=== PATIENT | male | born 1935 | race Caucasian/White ===

== ENCOUNTER 2017-11-25 12:05 | Emergency (ER) | payer MEDICARE ==
[2017-11-25 12:21] VITALS: TEMP 98
[2017-11-25] MEDS ORDERED: SODIUM CHLORIDE 0.9% 500 ML IV STA (12:33)
[2017-11-25] MEDS ORDERED: MECLIZINE 12.5 MG TAB PO STA (12:34)
[2017-11-25] MEDS ORDERED: METOCLOPRAMIDE 5 MG/ML 2 ML VIAL IVP STA (12:34)
--- NOTE | 2017-11-25 12:37 | ED ---
General Adult HPI - General Chief complaint: Dizziness Stated complaint: Dizzy Time Seen by Provider: 11/25/17 12:26 Source: patient, family, RN notes reviewed Mode of arrival: wheelchair Limitations: no limitations - History of Present Illness Initial comments: Patient is a pleasant 82-year-old male presenting to the emergency Department with complaints of dizziness. Onset was when he awoke at 8 AM. Patient feels lightheaded. Patient denies spinning type sensation. Patient had somewhat similar symptoms a month ago and had pacemaker placed secondary to heart rate of 24. Patient did have similar symptoms also 8 or 9 years ago and was diagnosed as an inner ear problem. No nausea vomiting. Symptoms are worsened with upright position. No confusion. No weakness. - Related Data Allergies Allergy/AdvReac Type Severity Reaction Status Date / Time No Known Allergies Allergy Verified 11/25/17 12:20 Review of Systems ROS Statement: Those systems with pertinent positive or pertinent negative responses have been documented in the HPI. ROS Other: All systems not noted in ROS Statement are negative. Constitutional: Denies: fever Eyes: Denies: eye pain ENT: Denies: ear pain Respiratory: Denies: dyspnea Cardiovascular: Denies: chest pain Endocrine: Denies: fatigue Gastrointestinal: Denies: abdominal pain Genitourinary: Denies: dysuria Musculoskeletal: Denies: back pain Skin: Denies: rash Neurological: Denies: headache, weakness, confusion Past Medical History Past Medical History: Atrial Fibrillation, Hyperlipidemia, Hypertension Additional Past Medical History / Comment(s): Pacermaker placed History of Any Multi-Drug Resistant Organisms: None Reported Past Surgical History: Pacemaker Additional Past Surgical History / Comment(s): Open heart surgery Past Psychological History: No Psychological Hx Reported Smoking Status: Never smoker Past Alcohol Use History: None Reported Past Drug Use History: None Reported General Exam Limitations: no limitations General appearance: alert, in no apparent distress Head exam: Present: atraumatic Eye exam: Present: normal appearance, PERRL, EOMI ENT exam: Present: normal oropharynx Neck exam: Present: normal inspection Respiratory exam: Present: normal lung sounds bilaterally Cardiovascular Exam: Present: regular rate, normal rhythm GI/Abdominal exam: Present: soft. Absent: tenderness Extremities exam: Present: normal inspection Neurological exam: Present: alert, CN II-XII intact. Absent: motor sensory deficit Expanded Neurological exam: Present: protecting the airway Speech: Present: fluid speech Cranial nerves: EOM's Intact: Normal, Facial Sensation: Normal Sensory exam: Upper Extremity Light Touch: Normal, Lower Extremity Light Touch: Normal Motor strength exam: RUE: 5, LUE: 5, RLE: 5, LLE: 5 Eye Response: (4) open spontaneously Motor Response: (6) obeys commands Verbal Response: (5) oriented Psychiatric exam: Present: normal affect, normal mood Skin exam: Present: normal color Course Vital Signs 11/25/17 11/25/17 11/25/17 12:17 13:17 13:18 Temperature 98.0 F Pulse Rate 65 Pulse Rate [ 59 L 59 L [employer] ] Respiratory 18 Rate Blood Pressure 190/86 Blood Pressure 169/77 178/83 [Right Arm] O2 Sat by Pulse 95 Oximetry 11/25/17 11/25/17 13:19 14:57 Temperature Pulse Rate 61 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 QRS 192. QT 458. QTC 476. Left axis. Wide QRS complex. No acute ST change. Medical Decision Making - Medical Decision Making Patient reevaluated and improved. Patient and family updated on results and plan. Patient did get up and felt comfortable. Lightheadedness has improved. - Lab Data Result diagrams: 11/25/17 12:54 11/25/17 12:54 Lab Results 11/25/17 11/25/17 11/25/17 Range/Units 12:54 12:54 12:54 WBC 6.9 (3.8-10.6) k/uL RBC 4.75 (4.30-5.90) m/uL Hgb 13.3 (13.0-17.5) gm/dL Hct 40.4 (39.0-53.0) % MCV 85.0 (80.0-100.0) fL MCH 27.9 (25.0-35.0) pg MCHC 32.8 (31.0-37.0) g/dL RDW 14.7 (11.5-15.5) % Plt Count 167 (150-450) k/uL Neutrophils % 81 % Lymphocytes % 9 % Monocytes % 7 % Eosinophils % 1 % Basophils % 1 % Neutrophils # 5.5 (1.3-7.7) k/uL Lymphocytes # 0.6 L (1.0-4.8) k/uL Monocytes # 0.5 (0-1.0) k/uL Eosinophils # 0.1 (0-0.7) k/uL Basophils # 0.0 (0-0.2) k/uL PT (9.0-12.0) sec INR (<1.2) APTT (22.0-30.0) sec Sodium 137 (137-145) mmol/L Potassium 5.0 (3.5-5.1) mmol/L Chloride 103 (98-107) mmol/L Carbon Dioxide 24 (22-30) mmol/L Anion Gap 10 mmol/L BUN 36 H (9-20) mg/dL Creatinine 1.14 (0.66-1.25) mg/dL Est GFR (CKD-EPI)AfAm 70 (>60 ml/min/1.73 sqM) Est GFR (CKD-EPI)NonAf 61 (>60 ml/min/1.73 sqM) Glucose 95 (74-99) mg/dL Calcium 8.6 (8.4-10.2) mg/dL Total Bilirubin 0.7 (0.2-1.3) mg/dL AST 28 (17-59) U/L ALT 18 L (21-72) U/L Alkaline Phosphatase 50 (38-126) U/L Total Creatine Kinase 104 (55-170) U/L CK-MB (CK-2) 1.5 (0.0-2.4) ng/mL CK-MB (CK-2) Rel Index 1.4 Troponin I <0.012 (0.000-0.034) ng/mL Total Protein 7.1 (6.3-8.2) g/dL Albumin 3.9 (3.5-5.0) g/dL 11/25/17 Range/Units 12:54 WBC (3.8-10.6) k/uL RBC (4.30-5.90) m/uL Hgb (13.0-17.5) gm/dL Hct (39.0-53.0) % MCV (80.0-100.0) fL MCH (25.0-35.0) pg MCHC (31.0-37.0) g/dL RDW (11.5-15.5) % Plt Count (150-450) k/uL Neutrophils % % Lymphocytes % % Monocytes % % Eosinophils % % Basophils % % Neutrophils # (1.3-7.7) k/uL Lymphocytes # (1.0-4.8) k/uL Monocytes # (0-1.0) k/uL Eosinophils # (0-0.7) k/uL Basophils # (0-0.2) k/uL PT 25.1 H (9.0-12.0) sec INR 2.8 H (<1.2) APTT 32.3 H (22.0-30.0) sec Sodium (137-145) mmol/L Potassium (3.5-5.1) mmol/L Chloride (98-107) mmol/L Carbon Dioxide (22-30) mmol/L Anion Gap mmol/L BUN (9-20) mg/dL Creatinine (0.66-1.25) mg/dL Est GFR (CKD-EPI)AfAm (>60 ml/min/1.73 sqM) Est GFR (CKD-EPI)NonAf (>60 ml/min/1.73 sqM) Glucose (74-99) mg/dL Calcium (8.4-10.2) mg/dL Total Bilirubin (0.2-1.3) mg/dL AST (17-59) U/L ALT (21-72) U/L Alkaline Phosphatase (38-126) U/L Total Creatine Kinase (55-170) U/L CK-MB (CK-2) (0.0-2.4) ng/mL CK-MB (CK-2) Rel Index Troponin I (0.000-0.034) ng/mL Total Protein (6.3-8.2) g/dL Albumin (3.5-5.0) g/dL - Radiology Data Radiology results: report reviewed (Computed tomography scan of the brain shows no acute hemorrhage. Atrophy and chronic small vessel ischemic changes are present. 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 Have primary care physician review chart from today. Return for dizziness, change or worsening symptoms or other concerns. Is patient prescribed a controlled substance at d/c from ED?: No Referrals: Nonstaff,Physician [Primary Care Provider] - 1-2 days Time of Disposition: 15:23
[2017-11-25 13:09] LABS: Basophils % (A) 1 %; Eosinophils # (A) 0.1 k/uL (0-0.7); Eosinophils % (A) 1 %; HCT 40.4 % (39.0-53.0); HGB 13.3 gm/dL (13.0-17.5); Lymphocytes # (A) 0.6 k/uL (1.0-4.8); Lymphocytes % (A) 9 %; MCH 27.9 pg (25.0-35.0); MCHC 32.8 g/dL (31.0-37.0); Mean Platelet Volume 6.8; Monocytes # (A) 0.5 k/uL (0-1.0); Monocytes % (A) 7 %; Neutrophils # (A) 5.5 k/uL (1.3-7.7); Neutrophils % (A) 81 %; Platelet Count 167 k/uL (150-450); RBC 4.75 m/uL (4.30-5.90); RDW 14.7 % (11.5-15.5); WBC 6.9 k/uL (3.8-10.6)
[2017-11-25 13:20] LABS: INR 2.8 (<1.2); Partial Thromboplastin Time 32.3 sec (22.0-30.0); Prothrombin Time 25.1 sec (9.0-12.0)
[2017-11-25 13:31] LABS: Creatine Kinase 104 U/L (55-170)
[2017-11-25 13:33] LABS: Calcium 8.6 mg/dL (8.4-10.2); Total Bilirubin 0.7 mg/dL (0.2-1.3)
[2017-11-25 13:44] LABS: Creatine Kinase MB 1.5 ng/mL (0.0-2.4); Troponin I <0.012 ng/mL (0.000-0.034)
[2017-11-25 13:46] LABS: Albumin 3.9 g/dL (3.5-5.0); Total Protein 7.1 g/dL (6.3-8.2)
--- NOTE | 2017-11-25 13:54 | XR ---
EXAMINATION TYPE: XR chest 1V portable DATE OF EXAM: 11/25/2017 COMPARISON: NONE HISTORY: Dizziness TECHNIQUE: Single frontal view of the chest is obtained. FINDINGS: Linear left basilar subsegmental atelectasis is seen in the left lower lung as well as nicky ear atelectasis at the right costophrenic angle. Cardiomediastinal silhouette is enlarged with post C ABG changes of the chest and single lead left-sided cardiac device. 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 Degenerative changes of the left acromioclavicular joint are seen with sugge stion of chronic rotator cuff injury as there is a high riding left humeral head. No pneumothorax or pleural effusion is seen. IMPRESSION: Bibasilar subsegmental atelectasis with no additional acute cardiopulmonary process.
--- NOTE | 2017-11-25 13:57 | CT ---
EXAMINATION TYPE: CT brain wo con DATE OF EXAM: 11/25/2017 COMPARISON: NONE HISTORY: dizziness CT DLP: 1034.7 mGycm Automated exposure control for dose reduction was used. TECHNIQUE: CT scan of the head is performed without contrast. FINDINGS: There is no acute intracranial hemorrhage or midline shift identified. There is diffuse v entricular and sulcal prominence consistent with diffuse age-related cerebral atrophy. Atherosclerosi s is seen of the intracranial vasculature. There is low-attenuation in the periventricular white bong er consistent with chronic small vessel ischemic change. Encephalomalacia is seen within the left fro ntal lobe in the distribution of the anterior cerebral artery from prior infarct. Old lacunar injurie s are seen of the anterior limb of the left internal capsule and the genu of the left internal capsul e. The globes are intact and the visualized sinuses are clear. Incidentally the left frontal sinus is hypoplastic. Benign-appearing calcified subcutaneous left frontal lesion is noted. IMPRESSION: No acute intracranial hemorrhage or midline shift. 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 Multiple left-sided old lacunar injuries and encephalomalacia of the left frontal lobe are seen from prior injury.
[2017-11-25 15:35] VITALS: BP 157/77; PULSE 631; RESP 16
== END 2017-11-25 15:30 | disposition home or self-care (01) ==
LOC: EC 12:05
DX: R42 Dizziness and giddiness (principal); R40.2142 Coma scale, eyes open, spontaneous, at arrival to emergency department; R40.2252 Coma scale, best verbal response, oriented, at arrival to emergency department; R40.2362 Coma scale, best motor response, obeys commands, at arrival to emergency department; Z95.0 Presence of cardiac pacemaker
CPT/HCPCS: 36415; 93005; 80053; 82550; 82553; 84484; 85025; 85610; 85730; 71045; 70450; 99284; 96374; 96361; J2765

== ENCOUNTER 2020-10-11 09:11 | Emergency (ER) | payer MEDICARE ==
[2020-10-11] MEDS ORDERED: SODIUM CHLORIDE 0.9% 1,000 ML IV ONE (09:28)
[2020-10-11] MEDS ORDERED: ACETAMINOPHEN TAB 500 MG TAB PO STA (09:32)
[2020-10-11] MEDS ORDERED: IBUPROFEN 600 MG TAB PO STA (09:32)
--- NOTE | 2020-10-11 09:32 | ED ---
General Adult HPI - General Chief complaint: Weakness Stated complaint: blood in stool Time Seen by Provider: 10/11/20 09:11 Source: patient, EMS, RN notes reviewed, old records reviewed Mode of arrival: EMS Limitations: no limitations - History of Present Illness Initial comments: This is an 85-year-old male who comes into the emergency department because last night he woke up with the chills so he took a warm shower stated that made him feel better. Patient states this morning and he still had the chills and is very constipated so decided come emergency department. Patient denies any nausea vomiting or diarrhea. Patient denies knowing that he had a fever. Patient states had the COVID vaccine both shots and the last shot was about 3 weeks ago. Patient denies any chest pain difficulty breathing shortness of breath per patient denies any cough. Patient denies any abdominal pain. Patient denies any rashes or lesions. Patient denies any recent injury or trauma. - Related Data Home Medications Medication Instructions Recorded Confirmed Atorvastatin [Lipitor] 40 mg PO DAILY 10/11/20 10/11/20 Chlorthalidone 25 mg PO DAILY 10/11/20 10/11/20 Losartan Potassium 100 mg PO DAILY 10/11/20 10/11/20 Rivaroxaban [Xarelto] 15 mg PO DAILY 10/11/20 10/11/20 Tamsulosin HCl [Flomax] 0.4 mg PO DAILY 10/11/20 10/11/20 amLODIPine [Norvasc] 2.5 mg PO DAILY 10/11/20 10/11/20 Allergies Allergy/AdvReac Type Severity Reaction Status Date / Time No Known Allergies Allergy Verified 10/11/20 10:25 Review of Systems ROS Statement: Those systems with pertinent positive or pertinent negative responses have been documented in the HPI. ROS Other: All systems not noted in ROS Statement are negative. Past Medical History Past Medical History: Atrial Fibrillation, Hyperlipidemia, Hypertension Additional Past Medical History / Comment(s): Pacermaker eddi History of Any Multi-Drug Resistant Organisms: None Reported Past Surgical History: Pacemaker Additional Past Surgical History / Comment(s): Open heart surgery Past Psychological History: No Psychological Hx Reported Past Alcohol Use History: None Reported Past Drug Use History: None Reported General Exam - General Exam Comments Initial Comments: GENERAL: Patient is well-developed and well-nourished. Patient is nontoxic and well- hydrated and is in mild distress. I took the patient's oral temperature was 100.7 ENT: Neck is soft and supple. No significant lymphadenopathy is noted. Oropharynx is clear. Moist mucous membranes. Neck has full range of motion without eliciting any pain. EYES: The sclera were anicteric and conjunctiva were pink and moist. Extraocular movements were intact and pupils were equal round and reactive to light. Eyelids were unremarkable. PULMONARY: Unlabored respirations. Good breath sounds bilaterally. No audible rales rhonchi or wheezing was noted. CARDIOVASCULAR: There is a regular rate and rhythm without any murmurs gallops or rubs. ABDOMEN: Soft and nontender with normal bowel sounds. SKIN: Skin is clear with no lesions or rashes and otherwise unremarkable. NEUROLOGIC: Patient is alert and oriented x3. Cranial nerves II through XII are grossly intact. Motor and sensory are also intact. Normal speech, volume and content. Symmetrical smile. MUSCULOSKELETAL: Normal extremities with adequate strength and full range of motion. LYMPHATICS: No significant lymphadenopathy is noted PSYCHIATRIC: Normal psychiatric evaluation. Limitations: no limitations Course Vital Signs 10/11/20 10/11/20 09:12 12:32 Temperature 100.7 F H 98.3 F Pulse Rate 67 65 Respiratory 18 20 Rate Blood Pressure 141/62 137/59 O2 Sat by Pulse 95 93 L Oximetry Medical Decision Making - Medical Decision Making EKG shows paced rhythm at 65 bpm QRS is 194 QT interval 508 QTC is 528. There is some noise in leads V3. Patient had his temperature reduced with Tylenol Motrin he felt considerably better. Patient's chest x-ray shows no acute abnormality. No source of infection was found however patient states he feels fine he would like to be discharged home is with the patient and she was in agreement with this and they both stated they would be back if there are any new or worsening symptoms. Patient states he did have a little blood when he was constipated he states he has a colonoscopy scheduled - Lab Data Result diagrams: 10/11/20 09:57 10/11/20 09:57 Lab Results 10/11/20 10/11/20 10/11/20 Range/Units 09:57 09:57 09:57 WBC 12.1 H (3.8-10.6) k/uL RBC 4.05 L (4.30-5.90) m/uL Hgb 11.4 L (13.0-17.5) gm/dL Hct 34.1 L (39.0-53.0) % MCV 84.0 (80.0-100.0) fL MCH 28.2 (25.0-35.0) pg MCHC 33.6 (31.0-37.0) g/dL RDW 15.5 (11.5-15.5) % Plt Count 217 (150-450) k/uL MPV 7.1 Neutrophils % 96 % Lymphocytes % 1 % Monocytes % 2 % Eosinophils % 0 % Basophils % 0 % Neutrophils # 11.7 H (1.3-7.7) k/uL Lymphocytes # 0.2 L (1.0-4.8) k/uL Monocytes # 0.2 (0-1.0) k/uL Eosinophils # 0.1 (0-0.7) k/uL Basophils # 0.0 (0-0.2) k/uL Sodium 138 (137-145) mmol/L Potassium 3.9 (3.5-5.1) mmol/L Chloride 110 H (98-107) mmol/L Carbon Dioxide 22 (22-30) mmol/L Anion Gap 6 mmol/L BUN 28 H (9-20) mg/dL Creatinine 1.32 H (0.66-1.25) mg/dL Est GFR (CKD-EPI)AfAm 58 (>60 ml/min/1.73 sqM) Est GFR (CKD-EPI)NonAf 50 (>60 ml/min/1.73 sqM) Glucose 87 (74-99) mg/dL Calcium 8.1 L (8.4-10.2) mg/dL Total Bilirubin 0.9 (0.2-1.3) mg/dL AST 22 (17-59) U/L ALT 9 (4-49) U/L Alkaline Phosphatase 56 (38-126) U/L Total Protein 6.1 L (6.3-8.2) g/dL Albumin 3.1 L (3.5-5.0) g/dL Urine Color Urine Appearance (Clear) Urine pH (5.0-8.0) Ur Specific [place] (1.001-1.035) Urine Protein (Negative) Urine Glucose (UA) (Negative) Urine Ketones (Negative) Urine Blood (Negative) Urine Nitrite (Negative) Urine Bilirubin (Negative) Urine Urobilinogen (<2.0) mg/dL Ur Leukocyte Esterase (Negative) Urine RBC (0-5) /hpf Urine WBC (0-5) /hpf Ur Squamous Epith Cells (0-4) /hpf Urine Bacteria (None) /hpf Urine Mucus (None) /hpf Coronavirus (PCR) Not Detected (Not Detectd) 10/11/20 Range/Units 11:30 WBC (3.8-10.6) k/uL RBC (4.30-5.90) m/uL Hgb (13.0-17.5) gm/dL Hct (39.0-53.0) % MCV (80.0-100.0) fL MCH (25.0-35.0) pg MCHC (31.0-37.0) g/dL RDW (11.5-15.5) % Plt Count (150-450) k/uL MPV Neutrophils % % Lymphocytes % % Monocytes % % Eosinophils % % Basophils % % Neutrophils # (1.3-7.7) k/uL Lymphocytes # (1.0-4.8) k/uL Monocytes # (0-1.0) k/uL Eosinophils # (0-0.7) k/uL Basophils # (0-0.2) k/uL Sodium (137-145) mmol/L Potassium (3.5-5.1) mmol/L Chloride (98-107) mmol/L Carbon Dioxide (22-30) mmol/L Anion Gap mmol/L BUN (9-20) mg/dL Creatinine (0.66-1.25) mg/dL Est GFR (CKD-EPI)AfAm (>60 ml/min/1.73 sqM) Est GFR (CKD-EPI)NonAf (>60 ml/min/1.73 sqM) Glucose (74-99) mg/dL Calcium (8.4-10.2) mg/dL Total Bilirubin (0.2-1.3) mg/dL AST (17-59) U/L ALT (4-49) U/L Alkaline Phosphatase (38-126) U/L Total Protein (6.3-8.2) g/dL Albumin (3.5-5.0) g/dL Urine Color Yellow Urine Appearance Clear (Clear) Urine pH 5.5 (5.0-8.0) Ur Specific [place] 1.014 (1.001-1.035) Urine Protein 1+ H (Negative) Urine Glucose (UA) Negative (Negative) Urine Ketones Negative (Negative) Urine Blood Negative (Negative) Urine Nitrite Negative (Negative) Urine Bilirubin Negative (Negative) Urine Urobilinogen <2.0 (<2.0) mg/dL Ur Leukocyte Esterase Negative (Negative) Urine RBC 2 (0-5) /hpf Urine WBC 1 (0-5) /hpf Ur Squamous Epith Cells <1 (0-4) /hpf Urine Bacteria Rare H (None) /hpf Urine Mucus Rare H (None) /hpf Coronavirus (PCR) (Not Detectd) Disposition Clinical Impression: Fever, unknown origin Disposition: HOME SELF-CARE Condition: Good Instructions (If sedation given, give patient instructions): Fever in Adults (ED) Is patient prescribed a controlled substance at d/c from ED?: No Referrals: Nonstaff,Physician [REFERRING] - 1-2 days Time of Disposition: 13:33
[2020-10-11 10:09] LABS: Basophils % (A) 0 %; Eosinophils # (A) 0.1 k/uL (0-0.7); Eosinophils % (A) 0 %; HCT 34.1 % (39.0-53.0); HGB 11.4 gm/dL (13.0-17.5); Lymphocytes # (A) 0.2 k/uL (1.0-4.8); Lymphocytes % (A) 1 %; MCH 28.2 pg (25.0-35.0); MCHC 33.6 g/dL (31.0-37.0); Mean Platelet Volume 7.1; Monocytes # (A) 0.2 k/uL (0-1.0); Monocytes % (A) 2 %; Neutrophils # (A) 11.7 k/uL (1.3-7.7); Neutrophils % (A) 96 %; Platelet Count 217 k/uL (150-450); RBC 4.05 m/uL (4.30-5.90); RDW 15.5 % (11.5-15.5); WBC 12.1 k/uL (3.8-10.6)
[2020-10-11 10:21] LABS: Albumin 3.1 g/dL (3.5-5.0); Calcium 8.1 mg/dL (8.4-10.2); Total Bilirubin 0.9 mg/dL (0.2-1.3); Total Protein 6.1 g/dL (6.3-8.2)
[2020-10-11 10:31] LABS: Potassium 3.9 mmol/L (3.5-5.1)
--- NOTE | 2020-10-11 10:34 | XR ---
EXAMINATION TYPE: XR chest 1V portable DATE OF EXAM: 10/11/2020 COMPARISON: Chest x-ray 11/25/2017 HISTORY: Shortness of breath TECHNIQUE: Single frontal view of the chest is obtained. FINDINGS: Postop changes are again noted, pacemaker is stable. Heart remains enlarged. No evident pn eumothorax or pleural effusion. Interstitium mildly increased. There are overlying leads. The aorta i s dense. IMPRESSION: Correlate for possible pulmonary venous hypertension and early interstitial edema. Cardi omegaly and postop, postprocedural changes.
--- NOTE | 2020-10-11 10:38 | XR ---
KUB HISTORY: Blood in stool Frontal KUB and 2 images No comparisons There is an aortic stent graft in place. Suspect some basilar interstitial changes are present within the lungs. Dense vascular calcifications are noted. Aorta is dense. Surgical clips are present withi n the groins. There is no evident bowel obstruction or pneumoperitoneum. Calcifications present in th e left lower quadrant are indeterminate. Sclerotic density is superimposed over the left ischium wilder uring 12 mm and is indeterminate. Degenerative disc changes are present in the visualized spine. Ther e is a slight spinal curvature. IMPRESSION: Nonobstructive bowel gas pattern. Indeterminate sclerotic density left ischium, consider bone scan as indicated. Additional findings above.
[2020-10-11 12:33] VITALS: RESP 20; TEMP 98.3
[2020-10-11 12:56] LABS: Appearance,Urine Clear (Clear); Bacteria,Urine Rare /hpf; Bilirubin,Urine Negative (Negative); Blood,Urine Negative (Negative); Color,Urine Yellow; Glucose,Urine (UA) Negative (Negative); Ketones,Urine Negative (Negative); Leukocyte Esterase,Urine Negative (Negative); Mucus,Urine Rare /hpf; Nitrite,Urine Negative (Negative); PH, Urine 5.5 (5.0-8.0); Protein,Urine 1+ (Negative); RBC,Urine 2 /hpf (0-5); Specific Gravity,Urine 1.014 (1.001-1.035); Squamous Epithelial Cell,Urine <1 /hpf (0-4); Urobilinogen,Urine <2.0 mg/dL (<2.0); WBC,Urine 1 /hpf (0-5)
[2020-10-11 14:20] VITALS: BP 122/78; PULSE 60
== END 2020-10-11 14:20 | disposition home or self-care (01) ==
LOC: EC 09:11
DX: R50.9 Fever, unspecified (principal); K59.00 Constipation, unspecified; K92.1 Melena; R53.1 Weakness; I48.91 Unspecified atrial fibrillation; E78.5 Hyperlipidemia, unspecified; I10 Essential (primary) hypertension; Z20.822 Contact with and (suspected) exposure to COVID-19
CPT/HCPCS: 36415; 71045; 74018; 80053; 81001; 85025; 87040; 87635; 93005; 96360; 96361; 99285

== ENCOUNTER 2020-11-02 17:26 | Emergency (ER) | payer MEDICARE ==
[2020-11-02] MEDS ORDERED: SODIUM CHLORIDE 0.9% 1,000 ML IV STA (17:52)
[2020-11-02] MEDS ORDERED: IBUPROFEN 600 MG TAB PO STA ×2 (17:52→21:06)
[2020-11-02] MEDS ORDERED: ACETAMINOPHEN TAB 500 MG TAB PO STA (17:52)
--- NOTE | 2020-11-02 18:51 | XR ---
EXAMINATION TYPE: XR chest 2V DATE OF EXAM: 11/02/2020 COMPARISON: 10/11/2020. HISTORY: Dizziness and weakness. TECHNIQUE: Frontal and lateral views of the chest are obtained. FINDINGS: There is mild interstitial edema with associated hazy opacity. No pleural effusion, or pne umothorax seen. Cardiomegaly, CABG and left pacemaker seen. The osseous structures are intact. IMPRESSION: Mild CHF.
[2020-11-02 19:04] LABS: Albumin 3.9 g/dL (3.5-5.0); Total Bilirubin 0.6 mg/dL (0.2-1.3); Total Protein 7.3 g/dL (6.3-8.2)
[2020-11-02 19:06] LABS: Basophils % (A) 0 %; Eosinophils % (A) 0 %; HCT 37.9 % (39.0-53.0); HGB 12.1 gm/dL (13.0-17.5); Lymphocytes # (A) 0.2 k/uL (1.0-4.8); Lymphocytes % (A) 2 %; MCH 27.4 pg (25.0-35.0); MCHC 31.9 g/dL (31.0-37.0); MCV 85.7 fL (80.0-100.0); Mean Platelet Volume 6.8; Monocytes # (A) 0.1 k/uL (0-1.0); Monocytes % (A) 1 %; Neutrophils # (A) 11.3 k/uL (1.3-7.7); Neutrophils % (A) 97 %; Platelet Count 235 k/uL (150-450); RBC 4.42 m/uL (4.30-5.90); RDW 15.4 % (11.5-15.5); WBC 11.6 k/uL (3.8-10.6)
--- NOTE | 2020-11-02 19:20 | ED ---
General Adult HPI - General Chief complaint: Fever Stated complaint: dizziness Time Seen by Provider: 11/02/20 17:38 Source: EMS Mode of arrival: EMS Limitations: no limitations - History of Present Illness Initial comments: Patient is an 85-year-old male, with history of A. fib, hypertension, pacemaker, presenting to the emergency department via EMS with complaints of feeling dizzy and shaky just prior to arrival. Patient states he was out to lunch with a family member when he started to become dizzy while sitting at the table. He has also been shaking a little bit. When temperature was checked, he was febrile, he did not know he had a fever. He currently denies being dizzy or lightheaded, he does feel a little shaky. He has been eating and drinking as normal, no chest pain or shortness of breath, no abdominal pain, no nausea or vomiting. He states he's had his full code beta vaccine. He's had no coughing or congestion. He has no further complaints at this time. Upon arrival to the ER, temperature is 102.7, rest of vitals are normal. - Related Data Home Medications Medication Instructions Recorded Confirmed Atorvastatin [Lipitor] 40 mg PO HS 10/11/20 11/02/20 Chlorthalidone 25 mg PO DAILY 10/11/20 11/02/20 Losartan Potassium 100 mg PO DAILY 10/11/20 11/02/20 Rivaroxaban [Xarelto] 15 mg PO HS 10/11/20 11/02/20 Tamsulosin HCl [Flomax] 0.4 mg PO HS 10/11/20 11/02/20 amLODIPine [Norvasc] 2.5 mg PO DAILY 10/11/20 11/02/20 Aspirin EC [Ecotrin Low Dose] 81 mg PO DAILY 11/02/20 11/02/20 Psyllium Husk 100% [Metamucil 6 gm PO DAILY PRN 11/02/20 11/02/20 Packet] Allergies Allergy/AdvReac Type Severity Reaction Status Date / Time No Known Allergies Allergy Verified 11/02/20 18:38 Review of Systems ROS Statement: Those systems with pertinent positive or pertinent negative responses have been documented in the HPI. ROS Other: All systems not noted in ROS Statement are negative. Past Medical History Past Medical History: Atrial Fibrillation, Hyperlipidemia, Hypertension Additional Past Medical History / Comment(s): Pacermaker placed History of Any Multi-Drug Resistant Organisms: None Reported Past Surgical History: Pacemaker Additional Past Surgical History / Comment(s): Open heart surgery Past Psychological History: No Psychological Hx Reported Smoking Status: Never smoker Past Alcohol Use History: None Reported Past Drug Use History: None Reported General Exam - General Exam Comments Initial Comments: GENERAL: Patient is well-developed and well-nourished. Patient is nontoxic and in no acute distress. HEAD: Atraumatic, normocephalic. EYES: Pupils equal round and reactive to light, extraocular movements intact, sclera anicteric, conjunctiva are normal. Eyelids were unremarkable. ENT: TMs normal, nares patent, oropharynx clear without exudates. Moist mucous membranes. NECK: Normal range of motion, supple without lymphadenopathy or JVD. LUNGS: Unlabored respirations. Breath sounds clear to auscultation bilaterally and equal. No wheezes rales or rhonchi. HEART: Regular rate and rhythm without murmurs, rubs or gallops. ABDOMEN: Soft, nontender, normoactive bowel sounds. No guarding, no rebound. No masses appreciated. : Deferred MUSCULOSKELETAL: Normal extremities with adequate strength and normal range of motion, no pitting or edema. No clubbing or cyanosis. NEUROLOGICAL: Patient is alert and oriented x 3. Motor and sensory are also intact. Cranial nerves II through XII grossly intact. Symmetrical smile. Normal speech, normal gait. PSYCH: Normal mood, normal affect. SKIN: Warm, Dry, normal turgor, no rashes or lesions noted. Limitations: no limitations Course Vital Signs 11/02/20 11/02/20 11/02/20 17:34 20:28 21:11 Temperature 102.7 F H 100.6 F H 100.1 F H Pulse Rate 91 61 60 Respiratory 18 16 18 Rate Blood Pressure 162/73 115/51 107/55 O2 Sat by Pulse 95 91 L 95 Oximetry EKG Findings - EKG Comments: EKG Findings:: Electronic ventricular pacemaker. Ventricular rate 77, QRS duration 182, QTC 442. Medical Decision Making - Medical Decision Making Patient is an 85-year-old male here via EMS with concerns of shakiness, some dizziness while he was sitting at lunch. Denies any pain anywhere. He did arrive febrile 102.7, rest of vitals were normal. EKG shows electronic ventricular pacemaker. Labs showed a very slightly elevated white count 11.6, creatinine is 1.57, lactic acid is 2.1, urine is negative, rapid Covid is negative. Chest x-ray shows mild CHF. Patient was given some fluids, Tylenol and Motrin. On reexamination, has been resting comfortably. He continues to be asymptomatic, no pain anywhere. His fever did improve, currently 100.6. I discussed these findings with the patient. There is no documented source for an infection at this time. His fever did respond to the Tylenol and Motrin. I discussed with patient that he can go home, recommended following up with his PCP within one to 3 days. He can continue alternating between Tylenol and Motrin for any further fevers. Strict return parameters were discussed with the patient and he verbalized understanding. Patient is in agreement with this plan of care. Case discussed with Dr. Dowling. - Lab Data Result diagrams: 11/02/20 18:45 11/02/20 18:45 Lab Results 11/02/20 11/02/20 11/02/20 Range/Units 18:45 18:45 18:45 WBC 11.6 H (3.8-10.6) k/uL RBC 4.42 (4.30-5.90) m/uL Hgb 12.1 L (13.0-17.5) gm/dL Hct 37.9 L (39.0-53.0) % MCV 85.7 (80.0-100.0) fL MCH 27.4 (25.0-35.0) pg MCHC 31.9 (31.0-37.0) g/dL RDW 15.4 (11.5-15.5) % Plt Count 235 (150-450) k/uL MPV 6.8 Neutrophils % 97 % Lymphocytes % 2 % Monocytes % 1 % Eosinophils % 0 % Basophils % 0 % Neutrophils # 11.3 H (1.3-7.7) k/uL Lymphocytes # 0.2 L (1.0-4.8) k/uL Monocytes # 0.1 (0-1.0) k/uL Eosinophils # 0.0 (0-0.7) k/uL Basophils # 0.0 (0-0.2) k/uL Sodium 138 (137-145) mmol/L Potassium 4.0 (3.5-5.1) mmol/L Chloride 102 (98-107) mmol/L Carbon Dioxide 25 (22-30) mmol/L Anion Gap 11 mmol/L BUN 36 H (9-20) mg/dL Creatinine 1.57 H (0.66-1.25) mg/dL Est GFR (CKD-EPI)AfAm 47 (>60 ml/min/1.73 sqM) Est GFR (CKD-EPI)NonAf 40 (>60 ml/min/1.73 sqM) Glucose 109 H (74-99) mg/dL Lactic Ac Sepsis Rflx Plasma Lactic Acid Jevon (0.7-2.0) mmol/L Calcium 9.0 (8.4-10.2) mg/dL Total Bilirubin 0.6 (0.2-1.3) mg/dL AST 21 (17-59) U/L ALT 10 (4-49) U/L Alkaline Phosphatase 78 (38-126) U/L Troponin I (0.000-0.034) ng/mL Total Protein 7.3 (6.3-8.2) g/dL Albumin 3.9 (3.5-5.0) g/dL Urine Color Yellow Urine Appearance Clear (Clear) Urine pH 5.5 (5.0-8.0) Ur Specific [place] 1.017 (1.001-1.035) Urine Protein Negative (Negative) Urine Glucose (UA) Negative (Negative) Urine Ketones Negative (Negative) Urine Blood Negative (Negative) Urine Nitrite Negative (Negative) Urine Bilirubin Negative (Negative) Urine Urobilinogen <2.0 (<2.0) mg/dL Ur Leukocyte Esterase Negative (Negative) Coronavirus (PCR) (Not Detectd) 11/02/20 11/02/20 11/02/20 Range/Units 18:45 18:45 18:47 WBC (3.8-10.6) k/uL RBC (4.30-5.90) m/uL Hgb (13.0-17.5) gm/dL Hct (39.0-53.0) % MCV (80.0-100.0) fL MCH (25.0-35.0) pg MCHC (31.0-37.0) g/dL RDW (11.5-15.5) % Plt Count (150-450) k/uL MPV Neutrophils % % Lymphocytes % % Monocytes % % Eosinophils % % Basophils % % Neutrophils # (1.3-7.7) k/uL Lymphocytes # (1.0-4.8) k/uL Monocytes # (0-1.0) k/uL Eosinophils # (0-0.7) k/uL Basophils # (0-0.2) k/uL Sodium (137-145) mmol/L Potassium (3.5-5.1) mmol/L Chloride (98-107) mmol/L Carbon Dioxide (22-30) mmol/L Anion Gap mmol/L BUN (9-20) mg/dL Creatinine (0.66-1.25) mg/dL Est GFR (CKD-EPI)AfAm (>60 ml/min/1.73 sqM) Est GFR (CKD-EPI)NonAf (>60 ml/min/1.73 sqM) Glucose (74-99) mg/dL Lactic Ac Sepsis Rflx Plasma Lactic Acid Jevon 2.1 H* (0.7-2.0) mmol/L Calcium (8.4-10.2) mg/dL Total Bilirubin (0.2-1.3) mg/dL AST (17-59) U/L ALT (4-49) U/L Alkaline Phosphatase (38-126) U/L Troponin I 0.023 (0.000-0.034) ng/mL Total Protein (6.3-8.2) g/dL Albumin (3.5-5.0) g/dL Urine Color Urine Appearance (Clear) Urine pH (5.0-8.0) Ur Specific [place] (1.001-1.035) Urine Protein (Negative) Urine Glucose (UA) (Negative) Urine Ketones (Negative) Urine Blood (Negative) Urine Nitrite (Negative) Urine Bilirubin (Negative) Urine Urobilinogen (<2.0) mg/dL Ur Leukocyte Esterase (Negative) Coronavirus (PCR) Not Detected (Not Detectd) 11/02/20 Range/Units 19:10 WBC (3.8-10.6) k/uL RBC (4.30-5.90) m/uL Hgb (13.0-17.5) gm/dL Hct (39.0-53.0) % MCV (80.0-100.0) fL MCH (25.0-35.0) pg MCHC (31.0-37.0) g/dL RDW (11.5-15.5) % Plt Count (150-450) k/uL MPV Neutrophils % % Lymphocytes % % Monocytes % % Eosinophils % % Basophils % % Neutrophils # (1.3-7.7) k/uL Lymphocytes # (1.0-4.8) k/uL Monocytes # (0-1.0) k/uL Eosinophils # (0-0.7) k/uL Basophils # (0-0.2) k/uL Sodium (137-145) mmol/L Potassium (3.5-5.1) mmol/L Chloride (98-107) mmol/L Carbon Dioxide (22-30) mmol/L Anion Gap mmol/L BUN (9-20) mg/dL Creatinine (0.66-1.25) mg/dL Est GFR (CKD-EPI)AfAm (>60 ml/min/1.73 sqM) Est GFR (CKD-EPI)NonAf (>60 ml/min/1.73 sqM) Glucose (74-99) mg/dL Lactic Ac Sepsis Rflx Y Plasma Lactic Acid Jevon (0.7-2.0) mmol/L Calcium (8.4-10.2) mg/dL Total Bilirubin (0.2-1.3) mg/dL AST (17-59) U/L ALT (4-49) U/L Alkaline Phosphatase (38-126) U/L Troponin I (0.000-0.034) ng/mL Total Protein (6.3-8.2) g/dL Albumin (3.5-5.0) g/dL Urine Color Urine Appearance (Clear) Urine pH (5.0-8.0) Ur Specific [place] (1.001-1.035) Urine Protein (Negative) Urine Glucose (UA) (Negative) Urine Ketones (Negative) Urine Blood (Negative) Urine Nitrite (Negative) Urine Bilirubin (Negative) Urine Urobilinogen (<2.0) mg/dL Ur Leukocyte Esterase (Negative) Coronavirus (PCR) (Not Detectd) Disposition Clinical Impression: Fever, unknown origin Disposition: HOME SELF-CARE Condition: Stable Instructions (If sedation given, give patient instructions): Fever in Adults (ED) Additional Instructions: Please return to the Emergency Department if symptoms worsen or any other concerns. Recommend alternating between Tylenol and ibuprofen for any continued fevers. Increase your water intake. Follow up with your primary care physician within 1-3 days as discussed. Is patient prescribed a controlled substance at d/c from ED?: No Referrals: Chuck Cosby MD [Primary Care Provider] - 1-2 days Time of Disposition: 20:45
[2020-11-02 19:56] LABS: Appearance,Urine Clear (Clear); Bilirubin,Urine Negative (Negative); Blood,Urine Negative (Negative); Color,Urine Yellow; Glucose,Urine (UA) Negative (Negative); Ketones,Urine Negative (Negative); Leukocyte Esterase,Urine Negative (Negative); Nitrite,Urine Negative (Negative); PH, Urine 5.5 (5.0-8.0); Protein,Urine Negative (Negative); Specific Gravity,Urine 1.017 (1.001-1.035); Urobilinogen,Urine <2.0 mg/dL (<2.0)
[2020-11-02 21:06] VITALS: BP 107/55; PULSE 60; RESP 18; TEMP 100.1
== END 2020-11-02 21:14 | disposition home or self-care (01) ==
LOC: EC 17:26
DX: R50.9 Fever, unspecified (principal); R42 Dizziness and giddiness; R25.1 Tremor, unspecified; I48.91 Unspecified atrial fibrillation; I10 Essential (primary) hypertension; E78.5 Hyperlipidemia, unspecified; Z20.822 Contact with and (suspected) exposure to COVID-19; Z79.82 Long term (current) use of aspirin; Z79.01 Long term (current) use of anticoagulants; Z95.0 Presence of cardiac pacemaker
CPT/HCPCS: 36415; 71046; 80053; 81003; 83605; 84484; 85025; 87040; 87635; 93005; 96360; 96361; 99284

== ENCOUNTER 2020-11-04 16:19 | Inpatient (IN) | payer MEDICARE ==
--- NOTE | 2020-11-04 16:51 | ED ---
General Adult HPI - General Chief complaint: Recheck/Abnormal Lab/Rx Stated complaint: lab recheck Source: patient Mode of arrival: ambulatory Limitations: no limitations - History of Present Illness Initial comments: Aleksey is a pleasant 85-year-old gentleman who presents to the ER today after being called by the hospital and notified that his blood cultures were positive. Patient reports that he was seen and evaluated up out 2 months ago and treated for diverticulitis, he states that since that time his symptoms have never completely resolved she has persistent constipation and occasional abdominal pain. He has had diverticulitis multiple times in the past and never had these symptoms persist. She was seen and evaluated for generalized weakness and lightheadedness 2 days ago, at that time blood cultures were obtained lab workup was otherwise negative and the patient was discharged home. Labs resulted today with gram-negative bacilli in the blood and patient was advised to return to the hospital. - Related Data Home Medications Medication Instructions Recorded Confirmed Atorvastatin [Lipitor] 40 mg PO HS 10/11/20 11/04/20 Chlorthalidone 25 mg PO DAILY 10/11/20 11/04/20 Losartan Potassium 100 mg PO DAILY 10/11/20 11/04/20 Rivaroxaban [Xarelto] 15 mg PO HS 10/11/20 11/04/20 Tamsulosin HCl [Flomax] 0.4 mg PO HS 10/11/20 11/04/20 amLODIPine [Norvasc] 2.5 mg PO DAILY 10/11/20 11/04/20 Aspirin EC [Ecotrin Low Dose] 81 mg PO DAILY 11/02/20 11/04/20 Psyllium Husk 100% [Metamucil 6 gm PO DAILY PRN 11/02/20 11/04/20 Packet] Allergies Allergy/AdvReac Type Severity Reaction Status Date / Time No Known Allergies Allergy Verified 11/04/20 17:28 Review of Systems ROS Statement: Those systems with pertinent positive or pertinent negative responses have been documented in the HPI. ROS Other: All systems not noted in ROS Statement are negative. Past Medical History Past Medical History: Atrial Fibrillation, Hyperlipidemia, Hypertension Additional Past Medical History / Comment(s): Pacermaker placed History of Any Multi-Drug Resistant Organisms: None Reported Past Surgical History: Pacemaker Additional Past Surgical History / Comment(s): Open heart surgery Past Psychological History: No Psychological Hx Reported Smoking Status: Never smoker Past Alcohol Use History: None Reported Past Drug Use History: None Reported General Exam - General Exam Comments Initial Comments: Physical Exam GENERAL: Patient is well-developed and well-nourished.. Patient is nontoxic and well-hydrated and is in no distress. HENT: Normocephalic, Atraumatic. EYES: PERRL, EOMI PULMONARY: Unlabored respirations. No audible rales rhonchi or wheezing was noted. CARDIOVASCULAR: There is a regular rate and rhythm without any murmurs gallops or rubs. ABDOMEN: Soft and nontender with normal bowel sounds. SKIN: Skin is clear with no lesions or rashes and otherwise unremarkable. : Deferred NEUROLOGIC: Patient is alert and oriented x3. Moving all extremities spontaneously MUSCULOSKELETAL: Normal extremities with adequate strength and full range of motion. No lower extremity swelling or edema. No calf tenderness. PSYCHIATRIC: Normal psychiatric evaluation. Limitations: no limitations Course Vital Signs 11/04/20 16:22 Temperature 98.2 F Pulse Rate 80 Respiratory 18 Rate Blood Pressure 179/94 O2 Sat by Pulse 97 Oximetry Medical Decision Making - Medical Decision Making Patient was seen and evaluated, history is obtained from the patient and review of medical record Repeat labs were obtained Rocephin was administered CT of the abdomen was ordered Patient care was discussed with Dr. Cummings who accepts the admission for patient with gram-negative bacteremia - Lab Data Result diagrams: 11/04/20 17:23 Lab Results 11/04/20 Range/Units 17:23 WBC 13.2 H (3.8-10.6) k/uL RBC 3.96 L (4.30-5.90) m/uL Hgb 10.8 L (13.0-17.5) gm/dL Hct 33.5 L (39.0-53.0) % MCV 84.6 (80.0-100.0) fL MCH 27.4 (25.0-35.0) pg MCHC 32.4 (31.0-37.0) g/dL RDW 15.4 (11.5-15.5) % Plt Count 202 (150-450) k/uL MPV 7.2 Neutrophils % 86 % Lymphocytes % 7 % Monocytes % 5 % Eosinophils % 1 % Basophils % 0 % Neutrophils # 11.3 H (1.3-7.7) k/uL Lymphocytes # 0.9 L (1.0-4.8) k/uL Monocytes # 0.7 (0-1.0) k/uL Eosinophils # 0.1 (0-0.7) k/uL Basophils # 0.0 (0-0.2) k/uL Disposition Clinical Impression: Gram-negative bacteremia Disposition: ADMITTED IP TO THIS HOSP Condition: Serious Is patient prescribed a controlled substance at d/c from ED?: No Referrals: Chuck Cosby MD [Primary Care Provider] - 1-2 days
[2020-11-04] MEDS ORDERED: ACETAMINOPHEN TAB 325 MG TAB PO PRN (17:17)
[2020-11-04] MEDS ORDERED: IBUPROFEN 400 MG TAB PO PRN (17:17)
[2020-11-04] MEDS ORDERED: NALOXONE 0.4 MG/ML 1 ML VIAL IV PRN (17:17)
[2020-11-04 17:34] LABS: Basophils % (A) 0 %; Eosinophils # (A) 0.1 k/uL (0-0.7); Eosinophils % (A) 1 %; HCT 33.5 % (39.0-53.0); HGB 10.8 gm/dL (13.0-17.5); Lymphocytes # (A) 0.9 k/uL (1.0-4.8); Lymphocytes % (A) 7 %; MCH 27.4 pg (25.0-35.0); MCHC 32.4 g/dL (31.0-37.0); MCV 84.6 fL (80.0-100.0); Mean Platelet Volume 7.2; Monocytes # (A) 0.7 k/uL (0-1.0); Monocytes % (A) 5 %; Neutrophils # (A) 11.3 k/uL (1.3-7.7); Neutrophils % (A) 86 %; Platelet Count 202 k/uL (150-450); RBC 3.96 m/uL (4.30-5.90); RDW 15.4 % (11.5-15.5); WBC 13.2 k/uL (3.8-10.6)
[2020-11-04 17:44] LABS: Albumin 3.4 g/dL (3.5-5.0); Calcium 8.5 mg/dL (8.4-10.2); Potassium 3.7 mmol/L (3.5-5.1); Total Bilirubin 0.5 mg/dL (0.2-1.3); Total Protein 6.6 g/dL (6.3-8.2)
[2020-11-04] MEDS: SODIUM CHLORIDE 0.9% 1,000 ML IV SCH (18:01)
--- NOTE | 2020-11-04 18:45 | CT ---
EXAMINATION TYPE: CT abdomen pelvis w con DATE OF EXAM: 11/04/2020 COMPARISON: None HISTORY: Generalized pain with constipation. CT DLP: 980.9 mGycm Automated exposure control for dose reduction was used. CONTRAST: Performed with IV Contrast, patient injected with 80 mL of Isovue 300. Images obtained from the diaphragm to the floor the pelvis with IV contrast. There is some mild fibrotic changes and subsegmental atelectasis at the lung bases. Heart is moderate ly enlarged. There is no pericardial effusion. Liver and gallbladder are intact. Bile ducts are not dilated. Spleen is intact. There is no pancreati c mass. The stomach is intact. There is no adrenal mass. There are bilateral renal cortical cysts that measure up to almost 3 cm. Th ere is no hydronephrosis. Delayed images show decreased renal excretion on the right side. There is a orto iliac endograft. There is aneurysm of the lower abdominal aorta that measures 5 cm. There is a complex fluid collection in the pelvis above the urinary bladder and posterior to the sigm oid colon. This measures almost 6 cm in diameter and is somewhat walled off. This is consistent with peridiverticular abscess. There is some wall thickening of the adjacent sigmoid colon. There are some multiple colonic diverticula. The small bowel pattern is fairly normal. There is no evidence of a bowel obstruction. Appendix is no t seen. There is no sign of thickened appendix. There is no evidence of free air in the abdomen. There is no ascites. There is enlarged prostate that measures 5.6 cm. There is no inguinal hernia. There is mild straightening of the lumbar spine. There is degenerative multilevel disc space narrowin g and spur formation. There is no compression fracture. Abdominal aorta is atheromatous. The bony pel vis is intact. The hip joints are intact. IMPRESSION: There is complex air and fluid-containing thick-walled mass in the pelvis consistent with peridiverti cular chronic abscess. Enlarged prostate. Colonic diverticulosis. Lower abdominal aortic aneurysm.
[2020-11-04] MEDS ORDERED: PSYLLIUM HUSK 100% 6 GM PACKET PO PRN (20:47)
[2020-11-04] MEDS: RIVAROXABAN 15 MG TAB PO SCH (21:20)
[2020-11-04] MEDS: TAMSULOSIN 0.4 MG CAP.ER.24H PO SCH (21:20)
[2020-11-04] MEDS: ATORVASTATIN 40 MG TAB PO SCH (21:21)
[2020-11-04] MEDS: PIPERACILLIN-TAZOBACTAM 3.375 GM in SODIUM CHLORIDE 0.9% 100 ML IVPB SCH (23:45)
[2020-11-05] MEDS: SODIUM CHLORIDE 0.9% 1,000 ML IV SCH ×3 (00:49→18:09)
[2020-11-05] MEDS: PIPERACILLIN-TAZOBACTAM 3.375 GM in SODIUM CHLORIDE 0.9% 100 ML IVPB SCH ×2 (09:15→16:17)
[2020-11-05] MEDS: amLODIPine 2.5 MG TAB PO SCH (10:20)
[2020-11-05] MEDS: LOSARTAN 50 MG TAB PO SCH (10:20)
[2020-11-05] MEDS: ASPIRIN 81 MG PO SCH (10:20)
--- NOTE | 2020-11-05 14:49 | P.HPIM ---
History of Present Illness H&P Date: 11/05/20 Chief Complaint: Called in for positive blood cultures Mr. Gaitan is an 85-year-old male with a past medical history of atrial fibrillation, hypertension, hyperlipidemia, pacemaker in place called by the hospital and notified him to come back due to positive blood cultures. Patient was seen in the emergency department on 11/02/2020 for the chief complaints of dizziness and shaking when he was having lunch with family members. Patient was having subjective fevers but did not check his temperature. At the time of admission his temperature was 102.7, he was given IV fluids after which she felt better. Blood cultures were obtained and he was discharged home. Eventually the blood cultures drawn from 11/02 were positive for gram-negative bacilli so he was called to come back. Patient has history of recurrent diverticulitis and was recently treated for a couple of months back. Patient is a poor historian and does not remember which antibiotics he was treated with. He complains of mild lower abdominal discomfort and constipation on and off that have been o ngoing since then. In the ED, patient had his vitals checked showing temperature of 98.2, heart rat e 80, respiratory rate 18, blood pressure 179/94, saturating at 97% on room air. On reviewing his labs white count of 13.2, hemoglobin 10.8, platelets 202. Sodium 135, rotation 3.7, chloride 105, bicarbonate 22, BUN 36, creatinine 1.30, albumin 3.4. Zambrano PCR negative. Patient had a CAT scan of the abdomen and pelvis showing complex 8 and fluid containing thick walled mass in the pelvis consistent with bradycardia diverticular chronic abscess. Lower abdominal aortic aneurysm. Patient received a dose of ceftriaxone and admitted for further management. Review of Systems REVIEW OF SYSTEMS: CONSTITUTIONAL: No fever, no malaise, no fatigue. HEENT: No recent visual problems or hearing problems. Denied any sore throat. CARDIOVASCULAR: No chest pain, orthopnea, PND, no palpitations, no syncope. PULMONARY: no hemoptysis. GASTROINTESTINAL: Constipation, lower abdominal discomfort NEUROLOGICAL: As per HPI HEMATOLOGICAL: Denies any bleeding or petechiae. GENITOURINARY: Denies any burning micturition, frequency, or urgency. MUSCULOSKELETAL/RHEUMATOLOGICAL: Denies any joint pain, swelling, or any muscle pain. ENDOCRINE: Denies any polyuria or polydipsia. The rest of the 14-point review of systems is negative. Past Medical History Past Medical History: Atrial Fibrillation, Hyperlipidemia, Hypertension Additional Past Medical History / Comment(s): Pacermaker placed 2 years ago History of Any Multi-Drug Resistant Organisms: None Reported Past Surgical History: Pacemaker Additional Past Surgical History / Comment(s): Open heart surgery,aneurism repair, R shoulder replacement Left testicle removed due to infection 2018 Past Anesthesia/Blood Transfusion Reactions: No Reported Reaction Type of Cardiac Device: Permanent Pacemaker Device Placement Date:: 2018 Past Psychological History: No Psychological Hx Reported Smoking Status: Never smoker Past Alcohol Use History: None Reported Past Drug Use History: None Reported Medications and Allergies Home Medications Medication Instructions Recorded Confirmed Type Atorvastatin [Lipitor] 40 mg PO HS 10/11/20 11/04/20 History Chlorthalidone 25 mg PO DAILY 10/11/20 11/04/20 History Losartan Potassium 100 mg PO DAILY 10/11/20 11/04/20 History Rivaroxaban [Xarelto] 15 mg PO HS 10/11/20 11/04/20 History Tamsulosin HCl [Flomax] 0.4 mg PO HS 10/11/20 11/04/20 History amLODIPine [Norvasc] 2.5 mg PO DAILY 10/11/20 11/04/20 History Aspirin EC [Ecotrin Low Dose] 81 mg PO DAILY 11/02/20 11/04/20 History Psyllium Husk 100% [Metamucil 6 gm PO DAILY PRN 11/02/20 11/04/20 History Packet] Allergies Allergy/AdvReac Type Severity Reaction Status Date / Time No Known Allergies Allergy Verified 11/04/20 17:28 Physical Exam Vitals: Vital Signs Temp Pulse Pulse Resp BP BP Pulse Ox 11/05/20 07:46 97.8 F 64 18 149/76 95 11/05/20 00:15 98.6 F 63 14 148/70 93 L 11/04/20 16:22 98.2 F 80 18 179/94 97 Intake and Output 11/04/20 11/05/20 11/05/20 22:59 06:59 14:59 Output Total 300 450 Balance -300 -450 Output: Urine 300 450 Other: Voiding Method Urinal Weight 77.111 kg PHYSICAL EXAMINATION: GENERAL: The patient is alert and oriented x3, not in any acute distress. Well developed, well nourished. HEENT: Pupils are round and equally reacting to light. EOMI. No scleral icterus. No conjunctival pallor. Normocephalic, atraumatic. No pharyngeal erythema. No thyromegaly. CARDIOVASCULAR: S1 and S2 present. No murmurs, rubs, or gallops. PULMONARY: Bilateral breath sounds are positive. No wheeze or crackles. ABDOMEN: Soft, positive for tenderness in the bilateral lower quadrants of the abdomen, bowel sounds positive. MUSCULOSKELETAL: No joint swelling or deformity. EXTREMITIES: No cyanosis, clubbing, or pedal edema. NEUROLOGICAL: Gross neurological examination did not reveal any focal deficits. SKIN: No rashes. Results CBC & Chem 7: 11/04/20 17:23 11/04/20 17:23 Labs: Abnormal Lab Results - Last 24 Hours (Table) 11/04/20 11/04/20 Range/Units 17:23 17:23 WBC 13.2 H (3.8-10.6) k/uL RBC 3.96 L (4.30-5.90) m/uL Hgb 10.8 L (13.0-17.5) gm/dL Hct 33.5 L (39.0-53.0) % Neutrophils # 11.3 H (1.3-7.7) k/uL Lymphocytes # 0.9 L (1.0-4.8) k/uL Sodium 135 L (137-145) mmol/L BUN 36 H (9-20) mg/dL Creatinine 1.30 H (0.66-1.25) mg/dL Glucose 100 H (74-99) mg/dL Albumin 3.4 L (3.5-5.0) g/dL Thrombosis Risk Factor Assmnt - Choose All That Apply Each Risk Factor Represents 3 Points: Age 75 years or older Thrombosis Risk Factor Assessment Total Risk Factor Score: 3 Thrombosis Risk Factor Assessment Level: Moderate Risk Assessment and Plan Assessment: ASSESSMENT Gram-negative bacteremia possible source could be peridiverticular abscess 6 cm sarah-diverticular abscess Acute kidney injury secondary to above Mild hyponatremia Leukocytosis Mild protein calorie malnutrition Atrial fibrillation on anticoagulation Hyperlipidemia Hypertension Pacemaker in place PLAN: Patient's blood cultures have been positive for gram-negative bacilli, he has been given a dose of ceftriaxone in the ED. Patient to be continued on Zosyn for now. Will repeat blood cultures. Patient has been restarted on home medications. ID Dr. Garcia has been consulted. Further recommendations to follow depending on the progress of the patient.
[2020-11-05] MEDS: RIVAROXABAN 15 MG TAB PO SCH (21:17)
[2020-11-05] MEDS: ATORVASTATIN 40 MG TAB PO SCH (21:17)
[2020-11-05] MEDS: TAMSULOSIN 0.4 MG CAP.ER.24H PO SCH (21:17)
--- NOTE | 2020-11-05 22:58 | CONS ---
CONSULTATION DATE OF SERVICE: 11/05/2020 REASON FOR CONSULTATION: Bacteremia. HISTORY OF PRESENT ILLNESS: The patient is an 85-year-old male with a past medical history of atrial fibrillation, hypertension, history of recurrent diverticulitis. The patient apparently was evaluated at [facility] on 11/02/2020 for evaluation of generalized weakness and shakiness and dizziness while the patient was having lunch with a family member. The patient did have subjective fever. The patient was evaluated at [facility] on the . He did have a fever of 102 degrees Fahrenheit. Apparently, the patient did have blood cultures drawn. He received IV fluid and was feeling better and was subsequently discharge home. However, the patient's blood culture subsequently came back positive and the patient advised to come into the hospital. The patient currently denies having any headache, no URI symptoms. No chest pain, shortness of breath or cough. No nausea, vomiting. He did have some lower abdominal pain, left lower abdominal area, more of a dull aching 3 to 4 out of 10 and no radiation. The patient did have constipation. No nausea, no vomiting. The patient on presentation to the hospital this admission has been afebrile. The patient did have white count of 13.2, creatinine 1.30. The patient did have a CT of abdomen and pelvis with evidence of diverticulitis with abdominal wall abscess. The patient has been started on Zosyn. Infectious Disease was consulted for further management of antibiotic therapy. REVIEW OF SYSTEMS: Positive points have been mentioned in HPI. Rest of systems are negative. PAST MEDICAL HISTORY: Atrial fibrillation, hypertension, hyperlipidemia and diverticulitis. PAST SURGICAL HISTORY: Open-heart surgery and pacemaker placement. SOCIAL HISTORY: Denies smoking, drinking or drug use. FAMILY HISTORY: No pertinent findings noticed. ALLERGIES: No known drug allergies. MEDICATIONS: The patient is currently on Tylenol, Norvasc, aspirin, Lipitor, Motrin, Cozaar, Narcan, Zosyn, Xarelto, Flomax and IV fluid. PHYSICAL EXAMINATION: Blood pressure 165/76, pulse of 73, temperature 98.4. He is 93% on room air. General description is an elderly male lying in bed in no distress. No tachypnea or accessory muscles of respiration use. HEENT: Examination shows slight pallor. No scleral icterus. Oral mucous membranes dry. NECK: Trachea central. No thyromegaly. LUNGS unlabored breathing. Clear to auscultation. No wheeze or crackles. HEART S1, S2. Regular rate and rhythm. ABDOMEN soft, mildly tender. No guarding or rigidity. No organomegaly. EXTREMITIES: No edema of the feet. SKIN EXAMINATION: No rash or mass palpable. NEUROLOGICAL: Patient is awake, alert, oriented x3. Mood and affect normal. LABS: Hemoglobin is 10.8, white count 13.2, BUN of 36, creatinine 1.30. Liver enzymes are normal. DIAGNOSTIC IMPRESSION AND PLAN: Patient with Gram-negative bacteremia, source likely abdominal in this patient who does have diverticulitis with peridiverticular abscess and will need to cover for enteric gram-negative with likely pathogen. The patient not exposed to antibiotic in the recent past could be sensitive pathogen. PLAN: 1. Zosyn 3.75 g q.8 hours to continue. 2. Blood cultures repeat to document clearance of bacteremia. 3. The patient will benefit from general surgery evaluation, but also will get consult to see if the abscess can be drained, CT-guided and fluid sent for culture. 4. We will follow on clinical condition and further adjust medication if needed. Thank you for this consultation. Will follow this patient along with you. MMODL / IJN: [id number] /
[2020-11-05] MEDS: MELATONIN 5 MG TABLET PO PRN (23:39)
[2020-11-06] MEDS: SODIUM CHLORIDE 0.9% 1,000 ML IV SCH ×4 (00:57→23:32)
[2020-11-06] MEDS: PIPERACILLIN-TAZOBACTAM 3.375 GM in SODIUM CHLORIDE 0.9% 100 ML IVPB SCH ×3 (01:51→17:35)
[2020-11-06 09:02] LABS: Basophils # (A) 0.03 X 10*3/uL (0.00-0.10); Basophils % (A) 0.5 %; Eosinophils # (A) 0.24 X 10*3/uL (0.04-0.35); Eosinophils % (A) 3.6 %; HCT 29.7 % (39.6-50.0); HGB 9.4 g/dL (13.0-17.0); Lymphocytes % (A) 15.2 %; MCH 27.8 pg (27.0-32.0); MCHC 31.6 g/dL (32.0-37.0); MCV 87.9 fL (80.0-97.0); Monocytes # (A) 0.62 X 10*3/uL (0.20-1.00); Monocytes % (A) 9.4 %; Neutrophils # (A) 4.64 X 10*3/uL (1.80-7.70); Neutrophils % (A) 70.4 %; Platelet Count 184 X 10*3/uL (140-440); RBC 3.38 X 10*6/uL (4.40-5.60); RDW 15.7 % (11.5-14.5); WBC 6.59 X 10*3/uL (4.50-10.00)
[2020-11-06] MEDS: LOSARTAN 50 MG TAB PO SCH (09:11)
[2020-11-06] MEDS: ASPIRIN 81 MG PO SCH (09:11)
[2020-11-06] MEDS: amLODIPine 2.5 MG TAB PO SCH (09:11)
[2020-11-06 10:01] LABS: African American GFR (CKD) 71.6 (60.0-200.0); Anion Gap 7.8 mmol/L (4.00-12.00); BUN/Creat Ratio 16.36 Ratio (12.00-20.00); Calcium 7.7 mg/dL (8.7-10.3); Carbon Dioxide 23.2 mmol/L (21.6-31.8); Non-African American GFR(CKD) 61.8 (60.0-200.0); Potassium 3.4 mmol/L (3.5-5.5)
[2020-11-06] MEDS ORDERED: Potassium Replacement Protocol 1 EACH MISC MISCELLANE PRN (12:06)
[2020-11-06] MEDS: POTASSIUM CHLORIDE ER 20 MEQ TAB.ER PO SCH ×2 (12:30→14:50)
--- NOTE | 2020-11-06 15:05 | P.PN ---
Subjective Progress Note Date: 11/06/20 Principal diagnosis: Gram-negative bacteremia Mr. Gaitan is an 85-year-old male with a past medical history of atrial fibrillation, hypertension, hyperlipidemia, pacemaker in place called by the hospital and notified him to come back due to positive blood cultures. Patient was seen in the emergency department on 11/02/2020 for the chief complaints of dizziness and shaking when he was having lunch with family members. Patient was having subjective fevers but did not check his temperature. At the time of admission his temperature was 102.7, he was given IV fluids after which she felt better. Blood cultures were obtained and he was discharged home. Eventually the blood cultures drawn from 11/02 were positive for gram-negative bacilli so he was called to come back. Patient has history of recurrent diverticulitis and was recently treated for a couple of months back. Patient is a poor historian and does not remember which antibiotics he was treated with. He complains of mild lower abdominal discomfort and constipation on and off that have been ongoing since then. In the ED, patient had his vitals checked showing temperature of 98.2, heart rate 80, respiratory rate 18, blood pressure 179/94, saturating at 97% on room air. On reviewing his labs white count of 13.2, hemoglobin 10.8, platelets 202. Sodium 135, rotation 3.7, chloride 105, bicarbonate 22, BUN 36, creatinine 1.30, albumin 3.4. Zambrano PCR negative. Patient had a CAT scan of the abdomen and pelvis showing complex 8 and fluid containing thick walled mass in the pelvis consistent with bradycardia diverticular chronic abscess. Lower abdominal aortic aneurysm. Patient received a dose of ceftriaxone and admitted for further management. On 11/06/2020 - patient is seen and examined at bedside. He is sitting comfortably in a chair at the bedside. Patient denies having any fevers chills or rigors. He still complains of mild lower abdominal discomfort, but better than yesterday. He had a bowel movement which was small this morning denies having any blood. Patient denies having any chest pain or palpitations. No cough or difficulty in breathing. No dysuria or hematuria. Remainder vitals temperature 98.4, heart rate 58, respiratory rate 17, blood pressure 166/74, saturating 95% on room air. Repeat the labs from this morning white count of 6.5, hemoglobin 9.4, platelets 184. Sodium 140, potassium 3.4, chloride 109, bicarbonate 23, BUN 18, creatinine 1.1. Active Medications Acetaminophen (Acetaminophen Tab 325 Mg Tab) 650 mg PO Q6HR PRN PRN Reason: Mild Pain or Fever > 100.5 Amlodipine Besylate (Amlodipine 2.5 Mg Tab) 2.5 mg PO DAILY [facility] Last Admin: 11/06/20 09:11 Dose: 2.5 mg Documented by: Aspirin (Aspirin 81 Mg) 81 mg PO DAILY [facility] Last Admin: 11/06/20 09:11 Dose: 81 mg Documented by: Atorvastatin Calcium (Atorvastatin 40 Mg Tab) 40 mg PO HS [facility] Last Admin: 11/05/20 21:17 Dose: 40 mg Documented by: Sodium Chloride (Saline 0.9%) 1,000 mls @ 130 mls/hr IV .Q7H42M [facility] Last Admin: 11/06/20 10:39 Dose: Not Given Documented by: Piperacillin Sod/Tazobactam (Sod 3.375 gm/ Sodium Chloride) 100 mls @ 25 mls/hr IVPB Q8HR [facility] Last Admin: 11/06/20 09:11 Dose: 25 mls/hr Documented by: Ibuprofen (Ibuprofen 400 Mg Tab) 400 mg PO Q6H PRN PRN Reason: Mild Pain or Fever > 100.5 Losartan Potassium (Losartan 50 Mg Tab) 100 mg PO DAILY [facility] Last Admin: 11/06/20 09:11 Dose: 100 mg Documented by: Melatonin (Melatonin 5 Mg Tablet) 5 mg PO HS PRN PRN Reason: Insomnia Last Admin: 11/05/20 23:39 Dose: 5 mg Documented by: Miscellaneous Information (Potassium Replacement Protocol 1 Each [facility] [place]) 1 each MISCELLANE DAILY PRN; Protocol PRN Reason: Per Protocol Naloxone HCl (Naloxone 0.4 Mg/Ml 1 Ml Vial) 0.2 mg IV Q2M PRN PRN Reason: Opioid Reversal Psyllium Hydrophilic Mucilloid (Psyllium Husk 100% 6 Gm Packet) 6 gm PO DAILY PRN PRN Reason: Constipation Rivaroxaban (Rivaroxaban 15 Mg Tab) 15 mg PO [facility] Last Admin: 11/05/20 21:17 Dose: 15 mg Documented by: Tamsulosin HCl (Tamsulosin 0.4 Mg Cap.Er.24h) 0.4 mg PO [facility] Last Admin: 11/05/20 21:17 Dose: 0.4 mg Documented by: Objective - Vital Signs Vital signs: Vital Signs Temp 97.5 F L 11/06/20 07:58 Pulse 61 11/06/20 07:58 Resp 18 11/06/20 07:58 BP 184/78 11/06/20 07:58 Pulse Ox 94 L 11/06/20 07:58 Intake & Output 11/05/20 11/06/20 11/06/20 18:59 06:59 18:59 Intake Total 1040 Output Total 725 Balance 1040 -725 Intake: IV 1040 Sodium Chloride 0.9% 1, 1040 000 ml @ 130 mls/hr IV . Q7H42M [facility] Rx#:[id number] Output: Urine 725 Other: Voiding Method Toilet Toilet Toilet Urinal Urinal Urinal - Exam PHYSICAL EXAMINATION: GENERAL: The patient is alert and oriented x3, not in any acute distress. Well developed, well nourished. HEENT: Pupils are round and equally reacting to light. EOMI. No scleral icterus. No conjunctival pallor. CARDIOVASCULAR: S1 and S2 present. No murmurs, rubs, or gallops. PULMONARY: Bilateral breath sounds are positive. No wheeze or crackles. ABDOMEN: Soft, positive for tenderness in the bilateral lower quadrants of the abdomen, bowel sounds positive. MUSCULOSKELETAL: No joint swelling or deformity. EXTREMITIES: No cyanosis, clubbing, or pedal edema. NEUROLOGICAL: Gross neurological examination did not reveal any focal deficits. SKIN: No rashes. - Labs CBC & Chem 7: 11/06/20 06:30 11/06/20 06:30 Labs: Abnormal Lab Results - Last 24 Hours (Table) 11/06/20 11/06/20 Range/Units 06:30 06:30 RBC 3.38 L (4.40-5.60) X 10*6/uL Hgb 9.4 L (13.0-17.0) g/dL Hct 29.7 L (39.6-50.0) % MCHC 31.6 L (32.0-37.0) g/dL RDW 15.7 H (11.5-14.5) % Immature Gran # 0.06 H (0.00-0.04) X 10*3/uL Potassium 3.4 L (3.5-5.5) mmol/L Calcium 7.7 L (8.7-10.3) mg/dL Microbiology - Last 24 Hours (Table) 11/04/20 17:05 Blood Culture - Preliminary Blood No Growth after 24 hours 11/04/20 17:23 Blood Culture - Preliminary Blood No Growth after 24 hours Assessment and Plan Assessment: ASSESSMENT Gram-negative bacteremia possible source could be peridiverticular abscess 6 cm sarah-diverticular abscess Acute kidney injury secondary to above Mild hyponatremia Leukocytosis Mild protein calorie malnutrition Atrial fibrillation on anticoagulation Hyperlipidemia Hypertension Pacemaker in place PLAN: Patient's blood cultures have been positive for gram-negative bacilli, he has been given a dose of ceftriaxone in the ED. Patient to be continued on Zosyn for now. White count has been trending down from 13 to 6 today. We will follow up on blood cultures. ID Dr. Garcia has been consulted, recommended surge ry consult and IR consult for possible drainage of the sarah-diverticular abscess. The treatment plan was discussed with the patient detail at bedside. Further recommendations to follow depending on the progress of the patient.
--- NOTE | 2020-11-06 16:27 | PN ---
PROGRESS NOTE DATE OF SERVICE: 11/06/2020 REASON FOR FOLLOWUP: Diverticulitis with an abscess. INTERVAL HISTORY: Patient is currently afebrile. Patient is breathing comfortably. Still having abdominal pain but no worsening. No chest pain, shortness of breath or cough. No diarrhea. PHYSICAL EXAMINATION: Blood pressure 136/74, pulse of 58, temperature 98.4. He is 95% on room air. General description is an elderly male lying in bed in no distress. Respiratory system: Unlabored breathing, clear to auscultation anteriorly. Heart S1, S2. Regular rate and rhythm. Abdomen soft, no tenderness. No edema of the feet. LABS: Creatinine is 9.4, white count 6.59, BUN of 18, creatinine 1.1. DIAGNOSTIC IMPRESSION AND PLAN: Patient with diverticulitis with an abscess. Waiting for CT-guided drainage. The patient is covered with Zosyn and Surgery has been consulted and will monitor clinical course closely. at the bedside. Multiple questions were answered. MMODL / IJN: [id number] /
[2020-11-06] MEDS ORDERED: POTASSIUM CHLORIDE ER 20 MEQ TAB.ER PO SCH (19:00)
[2020-11-06] MEDS: ATORVASTATIN 40 MG TAB PO SCH (20:35)
[2020-11-06] MEDS: RIVAROXABAN 15 MG TAB PO SCH (20:35)
[2020-11-06] MEDS: TAMSULOSIN 0.4 MG CAP.ER.24H PO SCH (20:35)
[2020-11-07] MEDS: PIPERACILLIN-TAZOBACTAM 3.375 GM in SODIUM CHLORIDE 0.9% 100 ML IVPB SCH ×3 (00:48→16:14)
[2020-11-07] MEDS: MELATONIN 5 MG TABLET PO PRN (00:48)
[2020-11-07] MEDS: amLODIPine 2.5 MG TAB PO SCH (08:16)
[2020-11-07] MEDS: SODIUM CHLORIDE 0.9% 1,000 ML IV SCH ×2 (08:16→16:15)
[2020-11-07] MEDS: LOSARTAN 50 MG TAB PO SCH (08:16)
[2020-11-07] MEDS: ASPIRIN 81 MG PO SCH (08:16)
[2020-11-07 08:20] LABS: Basophils % (A) 1 %; Eosinophils # (A) 0.3 k/uL (0-0.7); Eosinophils % (A) 5 %; HGB 10.3 gm/dL (13.0-17.5); Lymphocytes # (A) 0.9 k/uL (1.0-4.8); Lymphocytes % (A) 13 %; MCH 28.3 pg (25.0-35.0); MCHC 33.2 g/dL (31.0-37.0); MCV 85.3 fL (80.0-100.0); Mean Platelet Volume 7.3; Monocytes # (A) 0.5 k/uL (0-1.0); Monocytes % (A) 7 %; Neutrophils # (A) 5.1 k/uL (1.3-7.7); Neutrophils % (A) 74 %; Platelet Count 205 k/uL (150-450); RBC 3.63 m/uL (4.30-5.90); RDW 15.1 % (11.5-15.5); WBC 6.9 k/uL (3.8-10.6)
[2020-11-07 09:55] LABS: INR 1.4 (<1.2)
[2020-11-07 10:44] LABS: African American GFR (CKD) 64.4 (60.0-200.0); Anion Gap 8.6 mmol/L (4.00-12.00); BUN/Creat Ratio 12.5 Ratio (12.00-20.00); Calcium 8.1 mg/dL (8.7-10.3); Carbon Dioxide 22.4 mmol/L (21.6-31.8); Non-African American GFR(CKD) 55.6 (60.0-200.0); Potassium 4.1 mmol/L (3.5-5.5)
--- NOTE | 2020-11-07 11:38 | P.GSCN ---
History of Present Illness Consult date: 11/07/20 History of present illness: CHIEF COMPLAINT: Bacteremia Reason for consult: abdominal abscess HISTORY OF PRESENT ILLNESS: This is a 85-year-old male with a known history of 4 episodes of diverticulitis over about 15 years. He reports they were treated with antibiotics. He also has a history of constipation, coronary bypass graft, pacemaker placement, atrial fibrillation on Xarelto, hyperlipidemia, hypertension and abdominal aortic aneurysm repair. Patient came into the hospital because of positive blood cultures. Blood cultures have been ordered because patient had been not feeling well with fever and chills. Patient also reports having left lower abdominal pain. He did have a large bowel movement today. And his pain has improved. He is tolerating regular diet. On IV Zosyn. He had a computed tomography scan of the abdomen and pelvis with contrast showing complex air and fluid containing thick walled mass in the pelvis consistent with a peridiverticular chronic abscess. Enlarged prostate. Colonic diverticulosis. Lower abdominal aortic aneurysm. Surgical service on consult regards to abdominal abscess. Interventional radiology also consulted for drainage of abscess. PAST MEDICAL HISTORY: See list. PAST SURGICAL HISTORY: See list. MEDICATIONS: See list. ALLERGIES: See list. SOCIAL HISTORY: No illicit drug use. REVIEW OF SYSTEMS: CONSTITUTIONAL: Denies fever or chills. HEENT: Denies blurred vision, vision changes, or eye pain. Denies hemoptysis CARDIOVASCULAR: Denies chest pain or pressure. RESPIRATORY: No shortness of breath. GASTROINTESTINAL: See HPI for pertinent findings HEMATOLOGIC: Denies bleeding disorders. GENITOURINARY: Denies any blood in urine or increased urinary frequency. SKIN: Denies pruitis. Denies rash. PHYSICAL EXAM: VITAL SIGNS: Reviewed GENERAL: Well-developed in no acute distress. HEENT: No sclera icterus. Extraocular movements grossly intact. Moist buccal mucosa. Head is atraumatic, normocephalic. No nasal drainage. ABDOMEN: Soft. Nondistended. Nontender NEUROLOGIC: Alert and oriented. Cranial nerves II through XII grossly intact. LABORATORY DATA: WBC 13.2 down to 6.9 hemoglobin 10.3 platelets 205 INR 1.4 creatinine 1.2 Repeat blood cultures are negative IMAGING: computed tomography scan of the abdomen and pelvis with contrast showing complex air and fluid containing thick walled mass in the pelvis consistent with a peridiverticular chronic abscess. Complex fluid collection in the pelvis above the urinary bladder and posterior to the sigmoid colon. Measures about 6 cm diameter and is somewhat walled off. Enlarged prostate. Colonic diverticulosis. Lower abdominal aortic aneurysm. ASSESSMENT: 1. Peridiverticular abscess PLAN: -Awaiting interventional radiology evaluation for possible CT guided drainage of abscess. Unfortunately patient received Xarelto last night. Therefore, CT- guided drainage of abscess is scheduled for tomorrow with IR -Continue antibiotics per ID -Continue regular diet -Surgical service will continue to follow along Physician Licensed Psychologist Director note has been reviewed by physician. Signing provider agrees with the documented findings, assessment, and plan of care. Past Medical History Past Medical History: Atrial Fibrillation, Hyperlipidemia, Hypertension Additional Past Medical History / Comment(s): Pacermaker placed 2 years ago History of Any Multi-Drug Resistant Organisms: None Reported Past Surgical History: Pacemaker Additional Past Surgical History / Comment(s): Open heart surgery,aneurism repair, R shoulder replacement Left testicle removed due to infection 2017 Past Anesthesia/Blood Transfusion Reactions: No Reported Reaction Type of Cardiac Device: Permanent Pacemaker Device Placement Date:: 2018 Past Psychological History: No Psychological Hx Reported Smoking Status: Never smoker Past Alcohol Use History: None Reported Past Drug Use History: None Reported Medications and Allergies Home Medications Medication Instructions Recorded Confirmed Type Atorvastatin [Lipitor] 40 mg PO HS 10/11/20 11/04/20 History Chlorthalidone 25 mg PO DAILY 10/11/20 11/04/20 History Losartan Potassium 100 mg PO DAILY 10/11/20 11/04/20 History Rivaroxaban [Xarelto] 15 mg PO HS 10/11/20 11/04/20 History Tamsulosin HCl [Flomax] 0.4 mg PO HS 10/11/20 11/04/20 History amLODIPine [Norvasc] 2.5 mg PO DAILY 10/11/20 11/04/20 History Aspirin EC [Ecotrin Low Dose] 81 mg PO DAILY 11/02/20 11/04/20 History Psyllium Husk 100% [Metamucil 6 gm PO DAILY PRN 11/02/20 11/04/20 History Packet] Allergies Allergy/AdvReac Type Severity Reaction Status Date / Time No Known Allergies Allergy Verified 11/04/20 17:28 Surgical - Exam Vital Signs Temp Pulse Resp BP Pulse Ox 98.2 F 80 18 179/94 97 11/04/20 16:22 11/04/20 16:22 11/04/20 16:22 11/04/20 16:22 11/04/20 16:22 Results - Labs 11/07/20 06:57 11/07/20 06:57 Abnormal Lab Results - Last 24 Hours (Table) 11/07/20 11/07/20 11/07/20 Range/Units 06:57 06:57 09:06 RBC 3.63 L (4.30-5.90) m/uL Hgb 10.3 L (13.0-17.5) gm/dL Hct 31.0 L (39.0-53.0) % Lymphocytes # 0.9 L (1.0-4.8) k/uL PT 14.0 H (9.0-12.0) sec INR 1.4 H (<1.2) Chloride 112 H (96-109) mmol/L Est GFR (CKD-EPI)NonAf 55.6 L (60.0-200.0) Calcium 8.1 L (8.7-10.3) mg/dL Microbiology - Last 24 Hours (Table) 11/04/20 17:05 Blood Culture - Preliminary Blood No Growth after 48 hours 11/04/20 17:23 Blood Culture - Preliminary Blood No Growth after 48 hours Diabetes panel 11/06/20 11/07/20 Range/Units 17:41 06:57 Sodium 143 (135-145) mmol/L Potassium 3.7 4.1 (3.5-5.1) mmol/L Chloride 112 H (96-109) mmol/L Carbon Dioxide 22.4 (21.6-31.8) mmol/L BUN 15.0 (9.0-27.0) mg/dL Creatinine 1.2 (0.6-1.5) mg/dL Glucose 74 (70-110) mg/dL Calcium 8.1 L (8.7-10.3) mg/dL Calcium panel 11/07/20 Range/Units 06:57 Calcium 8.1 L (8.7-10.3) mg/dL Pituitary panel 11/06/20 11/07/20 Range/Units 17:41 06:57 Sodium 143 (135-145) mmol/L Potassium 3.7 4.1 (3.5-5.1) mmol/L Chloride 112 H (96-109) mmol/L Carbon Dioxide 22.4 (21.6-31.8) mmol/L BUN 15.0 (9.0-27.0) mg/dL Creatinine 1.2 (0.6-1.5) mg/dL Glucose 74 (70-110) mg/dL Calcium 8.1 L (8.7-10.3) mg/dL Adrenal panel 11/06/20 11/07/20 Range/Units 17:41 06:57 Sodium 143 (135-145) mmol/L Potassium 3.7 4.1 (3.5-5.1) mmol/L Chloride 112 H (96-109) mmol/L Carbon Dioxide 22.4 (21.6-31.8) mmol/L BUN 15.0 (9.0-27.0) mg/dL Creatinine 1.2 (0.6-1.5) mg/dL Glucose 74 (70-110) mg/dL Calcium 8.1 L (8.7-10.3) mg/dL
--- NOTE | 2020-11-07 12:04 | CDI ---
Documentation Clarification Form Date: 11/07/2020 11:59:41 AM From: Gloria France RN, CCDS Admit Date: 11/04/2020 05:22:00 PM Patient Name: Aleksey Gaitan Visit Number: [id number] ATTENTION: The Clinical Documentation Specialists (CDI) and [facility] Coding Staff appreciate your assistance in clarifying documentation. Please respond to the clarification below the line at the bottom and electronically sign. The CDI & [facility] Coding staff will review the response and follow-up if needed. Please note: Queries are made part of the Legal Health Record. If you have any questions, please contact the author of this message via ITS. Dr. Amira Steele Atrial Fibrillation is documented in the H&P and consults. Additional clarification regarding the type of atrial fibrillation is requested. History/Risk Factors: Atrial Fib, HTN, HLD, PPM, CABG, AAA Repair Clinical Indicators: 11/05 H&P and 11/06 Attending Progress note: "Atrial fibrillation on anticoagulation." 11/07 Surgical consult: "He also has a history of constipation, coronary bypass graft, pacemaker placement, atrial fibrillation on Xarelto, hyperlipidemia, hypertension and abdominal aortic aneurysm repair." EKG/telemetry: Not Done Treatment: Xarelto 15 mg Po Q HS ASA 81 mg Po QD Please clarify the type of atrial fibrillation, if known: [ ] Chronic [ ] Permanent [ ] Paroxysmal [ ] Persistent [ ] Other, please specify [ ] Unable to determine (Template Last Revised: October 2020) Persistent MTDD
[2020-11-07] MEDS: ATORVASTATIN 40 MG TAB PO SCH (21:08)
[2020-11-07] MEDS: TAMSULOSIN 0.4 MG CAP.ER.24H PO SCH (21:08)
--- NOTE | 2020-11-07 23:02 | P.PN ---
Subjective Progress Note Date: 11/07/20 Principal diagnosis: Gram-negative bacteremia Mr. Gaitan is an 85-year-old male with a past medical history of atrial fibrillation, hypertension, hyperlipidemia, pacemaker in place called by the hospital and notified him to come back due to positive blood cultures. Patient was seen in the emergency department on 11/02/2020 for the chief complaints of dizziness and shaking when he was having lunch with family members. Patient was having subjective fevers but did not check his temperature. At the time of admission his temperature was 102.7, he was given IV fluids after which she felt better. Blood cultures were obtained and he was discharged home. Eventually the blood cultures drawn from 11/02 were positive for gram-negative bacilli so he was called to come back. Patient has history of recurrent diverticulitis and was recently treated for a couple of months back. Patient is a poor historian and does not remember which antibiotics he was treated with. He complains of mild lower abdominal discomfort and constipation on and off that have been ongoing since then. In the ED, patient had his vitals checked showing temperature of 98.2, heart rate 80, respiratory rate 18, blood pressure 179/94, saturating at 97% on room air. On reviewing his labs white count of 13.2, hemoglobin 10.8, platelets 202. Sodium 135, rotation 3.7, chloride 105, bicarbonate 22, BUN 36, creatinine 1.30, albumin 3.4. Zambrano PCR negative. Patient had a CAT scan of the abdomen and pelvis showing complex 8 and fluid containing thick walled mass in the pelvis consistent with bradycardia diverticular chronic abscess. Lower abdominal aortic aneurysm. Patient received a dose of ceftriaxone and admitted for further management. On 11/06/2020 - patient is seen and examined at bedside. He is sitting comfortably in a chair at the bedside. Patient denies having any fevers chills or rigors. He still complains of mild lower abdominal discomfort, but better than yesterday. He had a bowel movement which was small this morning denies having any blood. Patient denies having any chest pain or palpitations. No cough or difficulty in breathing. No dysuria or hematuria. Remainder vitals temperature 98.4, heart rate 58, respiratory rate 17, blood pressure 166/74, saturating 95% on room air. Repeat the labs from this morning white count of 6.5, hemoglobin 9.4, platelets 184. Sodium 140, potassium 3.4, chloride 109, bicarbonate 23, BUN 18, creatinine 1.1. On 11/07/2020 -patient is seen and examined at bedside. Is comfortably sitting up in the bed and having his snack. Patient still complains of some lower abdominal discomfort. He denies having any fevers chills or rigors. No chest pain or palpitations. No cough or difficulty in breathing. No dysuria or hematuria. On reviewing the vitals temperature of 98.3, heart rate 69, respiratory 18, blood pressure 155/83, saturating at 94% on room air. On reviewing the labs white count of 6.9, hemoglobin 10.3, platelets 205. Sodium 140, potassium 4.1, chloride 112, bicarb 30, BUN 15, creatinine 1.2. INR is 1.4. Patient's blood cultures from 11/04/2020 no growth. Active Medications Acetaminophen (Acetaminophen Tab 325 Mg Tab) 650 mg PO Q6HR PRN PRN Reason: Mild Pain or Fever > 100.5 Amlodipine Besylate (Amlodipine 2.5 Mg Tab) 2.5 mg PO DAILY [facility] Last Admin: 11/07/20 08:16 Dose: 2.5 mg Documented by: Aspirin (Aspirin 81 Mg) 81 mg PO DAILY [facility] Last Admin: 11/07/20 08:16 Dose: 81 mg Documented by: Atorvastatin Calcium (Atorvastatin 40 Mg Tab) 40 mg PO HS [facility] Last Admin: 11/07/20 21:08 Dose: 40 mg Documented by: Sodium Chloride (Saline 0.9%) 1,000 mls @ 130 mls/hr IV .Q7H42M [facility] Last Admin: 11/07/20 16:15 Dose: 130 mls/hr Documented by: Piperacillin Sod/Tazobactam (Sod 3.375 gm/ Sodium Chloride) 100 mls @ 25 mls/hr IVPB Q8HR [facility] Last Admin: 11/07/20 16:14 Dose: 25 mls/hr Documented by: Ibuprofen (Ibuprofen 400 Mg Tab) 400 mg PO Q6H PRN PRN Reason: Mild Pain or Fever > 100.5 Losartan Potassium (Losartan 50 Mg Tab) 100 mg PO DAILY [facility] Last Admin: 11/07/20 08:16 Dose: 100 mg Documented by: Melatonin (Melatonin 5 Mg Tablet) 5 mg PO HS PRN PRN Reason: Insomnia Last Admin: 11/07/20 00:48 Dose: 5 mg Documented by: Miscellaneous Information (Potassium Replacement Protocol 1 Each Misc) 1 each MISCELLANE DAILY PRN; Protocol PRN Reason: Per Protocol Naloxone HCl (Naloxone 0.4 Mg/Ml 1 Ml Vial) 0.2 mg IV Q2M PRN PRN Reason: Opioid Reversal Psyllium Hydrophilic Mucilloid (Psyllium Husk 100% 6 Gm Packet) 6 gm PO DAILY PRN PRN Reason: Constipation Tamsulosin HCl (Tamsulosin 0.4 Mg Cap.Er.24h) 0.4 mg PO HS [facility] Last Admin: 11/07/20 21:08 Dose: 0.4 mg Documented by: Objective - Vital Signs Vital signs: Vital Signs Temp 98.0 F 11/07/20 08:00 Pulse 60 11/07/20 08:00 Resp 16 11/07/20 08:00 BP 167/76 11/07/20 08:00 Pulse Ox 93 L 11/07/20 08:00 Intake & Output 11/06/20 11/07/20 11/07/20 18:59 06:59 18:59 Other: Voiding Method Toilet Toilet Toilet Urinal Urinal Urinal # Voids 4 2 - Exam PHYSICAL EXAMINATION: GENERAL: The patient is alert and oriented x3, not in any acute distress. HEENT: Pupils are round and equally reacting to light. EOMI. No scleral icterus. No conjunctival pallor. CARDIOVASCULAR: S1 and S2 present. No murmurs, rubs, or gallops. PULMONARY: Bilateral breath sounds are positive. No wheeze or crackles. ABDOMEN: Soft, positive for tenderness in the bilateral lower quadrants of the abdomen, bowel sounds positive. MUSCULOSKELETAL: No joint swelling or deformity. EXTREMITIES: No cyanosis, clubbing, or pedal edema. NEUROLOGICAL: Gross neurological examination did not reveal any focal deficits. SKIN: No rashes. - Labs CBC & Chem 7: 11/07/20 06:57 11/07/20 06:57 Labs: Abnormal Lab Results - Last 24 Hours (Table) 11/07/20 11/07/20 11/07/20 Range/Units 06:57 06:57 09:06 RBC 3.63 L (4.30-5.90) m/uL Hgb 10.3 L (13.0-17.5) gm/dL Hct 31.0 L (39.0-53.0) % Lymphocytes # 0.9 L (1.0-4.8) k/uL PT 14.0 H (9.0-12.0) sec INR 1.4 H (<1.2) Chloride 112 H (96-109) mmol/L Est GFR (CKD-EPI)NonAf 55.6 L (60.0-200.0) Calcium 8.1 L (8.7-10.3) mg/dL Microbiology - Last 24 Hours (Table) 11/04/20 17:05 Blood Culture - Preliminary Blood No Growth after 48 hours 11/04/20 17:23 Blood Culture - Preliminary Blood No Growth after 48 hours Assessment and Plan Assessment: ASSESSMENT Gram-negative bacteremia possible source could be peridiverticular abscess 6 cm sarah-diverticular abscess Acute kidney injury secondary to above Mild hyponatremia Leukocytosis Mild protein calorie malnutrition Atrial fibrillation on anticoagulation Hyperlipidemia Hypertension Pacemaker in place PLAN: Patient to be continued on Zosyn for peridiverticular abscess and positive blood cultures. His blood cultures from 11/04/[address] Garcia on board. Interventional radiology has been consulted for possible drainage of the abscess. Patient's aspirin and Xarelto on hold, as he is scheduled for CT- guided drainage of the abscess for tomorrow morning. Continue with the rest of his current medication regimen. Further recommendations to follow depending on the progress of the patient.
[2020-11-08] MEDS: PIPERACILLIN-TAZOBACTAM 3.375 GM in SODIUM CHLORIDE 0.9% 100 ML IVPB SCH ×2 (00:23→07:25)
[2020-11-08] MEDS: MELATONIN 5 MG TABLET PO PRN (00:23)
[2020-11-08] MEDS: SODIUM CHLORIDE 0.9% 1,000 ML IV SCH ×3 (00:31→07:26)
[2020-11-08] MEDS: LOSARTAN 50 MG TAB PO SCH (07:25)
[2020-11-08] MEDS: amLODIPine 2.5 MG TAB PO SCH (07:25)
[2020-11-08] MEDS: ASPIRIN 81 MG PO SCH (07:26)
[2020-11-08 09:11] LABS: Basophils # (A) 0.07 X 10*3/uL (0.00-0.10); Eosinophils # (A) 0.29 X 10*3/uL (0.04-0.35); HCT 30.2 % (39.6-50.0); HGB 9.2 g/dL (13.0-17.0); Lymphocytes # (A) 1.04 X 10*3/uL (0.90-5.00); Lymphocytes % (A) 14.4 %; MCH 27.2 pg (27.0-32.0); MCHC 30.5 g/dL (32.0-37.0); MCV 89.3 fL (80.0-97.0); Mean Platelet Volume 9.7 fL (9.5-12.2); Monocytes # (A) 0.59 X 10*3/uL (0.20-1.00); Monocytes % (A) 8.2 %; Neutrophils # (A) 5.11 X 10*3/uL (1.80-7.70); Neutrophils % (A) 70.6 %; Platelet Count 190 X 10*3/uL (140-440); RBC 3.38 X 10*6/uL (4.40-5.60); RDW 15.4 % (11.5-14.5); WBC 7.23 X 10*3/uL (4.50-10.00)
[2020-11-08 10:16] LABS: African American GFR (CKD) 71.6 (60.0-200.0); Anion Gap 9.4 mmol/L (4.00-12.00); BUN/Creat Ratio 11.82 Ratio (12.00-20.00); Calcium 7.6 mg/dL (8.7-10.3); Carbon Dioxide 17.6 mmol/L (21.6-31.8); Non-African American GFR(CKD) 61.8 (60.0-200.0); Potassium 4.1 mmol/L (3.5-5.5)
[2020-11-08] MEDS ORDERED: hydrALAZINE HCL 20 MG/ML 1 ML VIAL IVP STA ×2 (11:50→15:51)
--- NOTE | 2020-11-08 11:55 | P.PN ---
Subjective Progress Note Date: 11/08/20 CHIEF COMPLAINT: Diverticular abscess HISTORY OF PRESENT ILLNESS: Surgical service is following in regards to patient's peridiverticular abscess. He remains on antibiotics. He denies any abdominal pain today. Denies any nausea or vomiting. He did have a loose stool. No blood in the stools. He is scheduled for CT-guided drainage of the abscess today with IR. Afebrile. WBC 7.23 hemoglobin 9.2 platelets 190 PHYSICAL EXAM: VITAL SIGNS: Reviewed. GENERAL: Well-developed in no acute distress. HEENT: No sclera icterus. Extraocular movements grossly intact. Moist buccal mucosa. Head is atraumatic, normocephalic. ABDOMEN: Soft. Nondistended. Nontender. NEUROLOGIC: Alert and oriented. Cranial nerves II through XII grossly intact. ASSESSMENT: 1. Peridiverticular abscess PLAN: -Patient is scheduled for CT-guided drainage today -Continue antibiotics -Continue supportive care Physician Rn Radiology note has been reviewed by physician. Signing provider agrees with the documented findings, assessment, and plan of care. Objective - Vital Signs Vital signs: Vital Signs Temp 97.7 F 11/08/20 07:46 Pulse 69 11/08/20 11:34 Resp 18 11/08/20 11:34 BP 204/95 11/08/20 11:34 Pulse Ox 98 11/08/20 11:34 Intake & Output 11/07/20 11/08/20 11/08/20 18:59 06:59 18:59 Other: Voiding Method Toilet Toilet Toilet Urinal Urinal Urinal - Labs CBC & Chem 7: 11/08/20 06:38 11/08/20 06:38 Labs: Abnormal Lab Results - Last 24 Hours (Table) 11/08/20 11/08/20 Range/Units 06:38 06:38 RBC 3.38 L (4.40-5.60) X 10*6/uL Hgb 9.2 L (13.0-17.0) g/dL Hct 30.2 L (39.6-50.0) % MCHC 30.5 L (32.0-37.0) g/dL RDW 15.4 H (11.5-14.5) % Immature Gran # 0.13 H (0.00-0.04) X 10*3/uL Chloride 113 H (96-109) mmol/L Carbon Dioxide 17.6 L (21.6-31.8) mmol/L BUN/Creatinine Ratio 11.82 L (12.00-20.00) Ratio Calcium 7.6 L (8.7-10.3) mg/dL Microbiology - Last 24 Hours (Table) 11/04/20 17:05 Blood Culture - Preliminary Blood No Growth after 72 hours 11/04/20 17:23 Blood Culture - Preliminary Blood No Growth after 72 hours
--- NOTE | 2020-11-08 11:59 | CT ---
EXAMINATION TYPE: CT discontinued procedure DATE OF EXAM: 11/08/2020 COMPARISON: CT 11/04/2020 HISTORY: Abdominal abscess, evaluate for percutaneous drainage CT DLP: 647 mGycm Automated exposure control for dose reduction was used. Helical imaging obtained pre and post intrave nous contrast administration, patient received 100 cc Isovue-300 IV. FINDINGS: The diverticular abscess is better delineated on postcontrast images, precontrast images were perform ed for percutaneous drainage planning purposes. The abscess measured approximately 5 cm x 5.2 cm on p rior exam and now measures approximately 4 cm x 4 cm. Patient's blood pressure is running approximately 197/100 mmHg. Due to the relative decrease in size of the abscess as well as patient's elevated blood pressure, jian se proximity to the bowel wall possibly intramural location a portion of the abscess, discussion was undertaken with referring clinician. Due to risk of the procedure and patient improvement on antibiot ics no percutaneous abscess drainage is performed at this time. IMPRESSION: ABORTED ABSCESS DRAINAGE, ADDITIONAL FOLLOW-UP RECOMMENDED.
--- NOTE | 2020-11-08 14:01 | PN ---
PROGRESS NOTE DATE OF SERVICE: 11/08/2020 REASON FOR FOLLOWUP: Diverticular abscess and bacteremia. INTERVAL HISTORY: Patient is afebrile. The patient was taken down for CT-guided drainage of this abscess. On the table he was noted to have significantly elevated blood pressure of 204 systolic. The patient denies having any headache, chest pain or shortness of breath or cough. The radiologist did call me mentioning that the abscess has significantly decreased in size from 6 cm down to 3.5 cm and keeping in mind he has a significantly elevated blood pressure recommended no drainage. The patient subsequently has been seen in the room. Denies having any chest pain, shortness of breath or cough. No abdominal pain or diarrhea. PHYSICAL EXAMINATION: Blood pressure is 204/95 with a pulse 69, temperature 97.7. He is 98% on room air. GENERAL DESCRIPTION: An elderly male up in the bed in no distress. RESPIRATORY SYSTEM: Unlabored breathing, clear to auscultation anteriorly. HEART: S1, S2. Regular rate and rhythm. ABDOMEN: Soft, no tenderness. LABORATORY DATA: Hemoglobin is 9.1, white count 7.23, BUN of 13, creatinine 1.1. DIAGNOSTIC IMPRESSION AND PLAN: Patient with peridiverticular abscess with fusobacterium bacteremia with no evidence of any liver abscess. The patient's abscess has significantly decrease in size on with3-4 days of IV antibiotic therapy. Radiology recommended against surgical CT guided drainage. We will get a Medline. Antibiotic adjusted Rocephin 2 grams daily and Flagyl for 2 weeks with a repeat CT scan at that point. Questions and concerns were answered. MMODL / IJN: [id number] /
[2020-11-08] MEDS ORDERED: hydrALAZINE HCL 20 MG/ML 1 ML VIAL IVP PRN (15:51)
[2020-11-08] MEDS: metroNIDAZOLE-NS PMX 500 MG in SALINE 1 100ML.BAG IVPB SCH (15:57)
--- NOTE | 2020-11-08 17:07 | P.PN ---
Subjective Progress Note Date: 11/08/20 Gram-negative bacteremia Mr. Gaitan is an 85-year-old male with a past medical history of atrial fib rillation, hypertension, hyperlipidemia, pacemaker in place called by the hospital and notified him to come back due to positive blood cultures. Patient was seen in the emergency department on 11/02/2020 for the chief complaints of dizziness and shaking when he was having lunch with family members. Patient was having subjective fevers but did not check his temperature. At the time of admission his temperature was 102.7, he was given IV fluids after which she felt better. Blood cultures were obtained and he was discharged home. Eventually the blood cultures drawn from 11/02 were positive for gram-negative bacilli so he was called to come back. Patient has history of recurrent diverticulitis and was recently treated for a couple of months back. Patient is a poor historian and does not remember which antibiotics he was treated with. He complains of mild lower abdominal discomfort and constipation on and off that have been ongoing since then. In the ED, patient had his vitals checked showing temperature of 98.2, heart rate 80, respiratory rate 18, blood pressure 179/94, saturating at 97% on room air. On reviewing his labs white count of 13.2, hemoglobin 10.8, platelets 202. Sodium 135, rotation 3.7, chloride 105, bicarbonate 22, BUN 36, creatinine 1.30, albumin 3.4. Zambrano PCR negative. Patient had a CAT scan of the abdomen and pelvis showing complex 8 and fluid containing thick walled mass in the pelvis consistent with bradycardia diverticular chronic abscess. Lower abdominal aortic aneurysm. Patient received a dose of ceftriaxone and admitted for further management. On 11/06/2020 - patient is seen and examined at bedside. He is sitting comfortably in a chair at the bedside. Patient denies having any fevers chills or rigors. He still complains of mild lower abdominal discomfort, but better than yesterday. He had a bowel movement which was small this morning denies having any blood. Patient denies having any chest pain or palpitations. No cough or difficulty in breathing. No dysuria or hematuria. Remainder vitals temperature 98.4, heart rate 58, respiratory rate 17, blood pressure 166/74, saturating 95% on room air. Repeat the labs from this morning white count of 6.5, hemoglobin 9.4, platelets 184. Sodium 140, potassium 3.4, chloride 109, bicarbonate 23, BUN 18, creatinine 1.1. On 11/07/2020 -patient is seen and examined at bedside. Is comfortably sitting up in the bed and having his snack. Patient still complains of some lower abdo agustina discomfort. He denies having any fevers chills or rigors. No chest pain or palpitations. No cough or difficulty in breathing. No dysuria or hematuria. On reviewing the vitals temperature of 98.3, heart rate 69, respiratory 18, blood pressure 155/83, saturating at 94% on room air. On reviewing the labs white count of 6.9, hemoglobin 10.3, platelets 205. Sodium 140, potassium 4.1, chloride 112, bicarb 30, BUN 15, creatinine 1.2. INR is 1.4. Patient's blood cultures from 11/04/2020 no growth. 11/08/2020 Patient is seen and evaluated in follow-up and went with interventional radiolog y for possible guided abscess drainage although was told the abscess has decreased in size and will not be doing drainage. Patient was maintained on IV antibiotics in the form of Zosyn and infectious disease is following. IV antibiotics have recently been changed to ceftriaxone and Flagyl. Patient will likely need IV antibiotic therapy in the outpatient setting and will discuss with infectious disease along with case management about discharge planning needs. Patient to receive a midline today. Most recent repeated blood cultures remain negative thus far. Patient blood pressure is elevated today and will increase amlodipine dose and add hydralazine as needed as blood pressure systolic has been over 200. Blood count is 7.23 and hemoglobin is stable at 9.2, sodium is 140 with a potassium of 4.1 and creatinine is 1.1. Review of systems: Constitutional: No reports of fatigue, fever, or chills Cardiovascular: No reports of chest pain or palpitations Respiratory: No reports of shortness of breath or cough GI: No reports of nausea, vomiting, or diarrhea, reports some lower abdominal d iscomfort : No reports of dysuria or retention Neurovascular: No reports of weakness or numbness All medications have been reviewed Active Medications Acetaminophen (Acetaminophen Tab 325 Mg Tab) 650 mg PO Q6HR PRN PRN Reason: Mild Pain or Fever > 100.5 Last Admin: 11/08/20 04:14 Dose: 650 mg Documented by: Amlodipine Besylate (Amlodipine 2.5 Mg Tab) 2.5 mg PO DAILY [facility] Last Admin: 11/08/20 07:25 Dose: 2.5 mg Documented by: Aspirin (Aspirin 81 Mg) 81 mg PO DAILY [facility] Last Admin: 11/08/20 07:26 Dose: Not Given Documented by: Atorvastatin Calcium (Atorvastatin 40 Mg Tab) 40 mg PO HS [facility] Last Admin: 11/07/20 21:08 Dose: 40 mg Documented by: Hydralazine HCl (Hydralazine Hcl 20 Mg/Ml 1 Ml Vial) 10 mg IVP Q6HR PRN PRN Reason: Blood Pressure - High Sodium Chloride (Saline 0.9%) 1,000 mls @ 130 mls/hr IV .Q7H42M [facility] Last Admin: 11/08/20 07:26 Dose: 130 mls/hr Documented by: Ceftriaxone Sodium 2 gm/ (Sodium Chloride) 50 mls @ 100 mls/hr IVPB Q24HR [facility] Last Admin: 11/08/20 13:02 Dose: 100 mls/hr Documented by: Metronidazole 500 mg/ IV (Solution) 100 mls @ 100 mls/hr IVPB Q8HR [facility] Last Admin: 11/08/20 15:57 Dose: 100 mls/hr Documented by: Ibuprofen (Ibuprofen 400 Mg Tab) 400 mg PO Q6H PRN PRN Reason: Mild Pain or Fever > 100.5 Losartan Potassium (Losartan 50 Mg Tab) 100 mg PO DAILY [facility] Last Admin: 11/08/20 07:25 Dose: 100 mg Documented by: Melatonin (Melatonin 5 Mg Tablet) 5 mg PO HS PRN PRN Reason: Insomnia Last Admin: 11/08/20 00:23 Dose: 5 mg Documented by: Miscellaneous Information (Potassium Replacement Protocol 1 Each Misc) 1 each MISCELLANE DAILY PRN; Protocol PRN Reason: Per Protocol Naloxone HCl (Naloxone 0.4 Mg/Ml 1 Ml Vial) 0.2 mg IV Q2M PRN PRN Reason: Opioid Reversal Psyllium Hydrophilic Mucilloid (Psyllium Husk 100% 6 Gm Packet) 6 gm PO DAILY PRN PRN Reason: Constipation Tamsulosin HCl (Tamsulosin 0.4 Mg Cap.Er.24h) 0.4 mg PO [facility] Last Admin: 11/07/20 21:08 Dose: 0.4 mg Documented by: Objective - Vital Signs Vital signs: Vital Signs Temp 99.9 F H 11/08/20 13:46 Pulse 61 11/08/20 13:46 Resp 16 11/08/20 13:46 BP 202/85 11/08/20 13:46 Pulse Ox 98 11/08/20 13:46 Intake & Output 11/07/20 11/08/20 11/08/20 18:59 06:59 18:59 Other: Voiding Method Toilet Toilet Toilet Urinal Urinal Urinal - Exam GENERAL: The patient is alert and oriented x3, not in any acute distress. HEENT: Pupils are round and equally reacting to light. EOMI. No scleral icterus. No conjunctival pallor. CARDIOVASCULAR: S1 and S2 present. No murmurs, rubs, or gallops. PULMONARY: Bilateral breath sounds are positive. No wheeze or crackles. ABDOMEN: Soft, positive for tenderness in the bilateral lower quadrants of the abdomen, bowel sounds positive. MUSCULOSKELETAL: No joint swelling or deformity. EXTREMITIES: No cyanosis, clubbing, or pedal edema. NEUROLOGICAL: Gross neurological examination did not reveal any focal deficits. SKIN: No rashes. - Labs CBC & Chem 7: 11/08/20 06:38 11/08/20 06:38 Labs: Abnormal Lab Results - Last 24 Hours (Table) 11/08/20 11/08/20 Range/Units 06:38 06:38 RBC 3.38 L (4.40-5.60) X 10*6/uL Hgb 9.2 L (13.0-17.0) g/dL Hct 30.2 L (39.6-50.0) % MCHC 30.5 L (32.0-37.0) g/dL RDW 15.4 H (11.5-14.5) % Immature Gran # 0.13 H (0.00-0.04) X 10*3/uL Chloride 113 H (96-109) mmol/L Carbon Dioxide 17.6 L (21.6-31.8) mmol/L BUN/Creatinine Ratio 11.82 L (12.00-20.00) Ratio Calcium 7.6 L (8.7-10.3) mg/dL Microbiology - Last 24 Hours (Table) 11/04/20 17:05 Blood Culture - Preliminary Blood No Growth after 72 hours 11/04/20 17:23 Blood Culture - Preliminary Blood No Growth after 72 hours Assessment and Plan Assessment: Gram-negative bacteremia possible source could be peridiverticular abscess 6 cm sarah-diverticular abscess Acute kidney injury secondary to above Mild hyponatremia Leukocytosis Mild protein calorie malnutrition Atrial fibrillation on anticoagulation Hyperlipidemia Hypertension Pacemaker in place PLAN: Patient was maintained on Zosyn for peridiverticular abscess and positive blood cultures. Most recent blood cultures have been negative and infectious disease is following. Antibiotics changed to Flagyl and ceftriaxone. Patient was scheduled with IR for possible drainage although was told the abscess has decreased significantly. Patient scheduled to receive a midline today and will likely require IV antibiotic therapy in the outpatient setting. Patient blood pressure is elevated and will increase amlodipine and use hydralazine as needed and monitor closely. Patient's aspirin and Xarelto was on hold for possible abscess drainage although not done and will resume. Continue with the rest of his current medication regimen. Further recommendations to follow depending on the progress of the patient. Possible discharge in 24-48 hours.
[2020-11-08] MEDS: TAMSULOSIN 0.4 MG CAP.ER.24H PO SCH (20:58)
[2020-11-08] MEDS: amLODIPine 5 MG TAB PO SCH (20:58)
[2020-11-08] MEDS: ATORVASTATIN 40 MG TAB PO SCH (20:58)
[2020-11-08] MEDS ORDERED: RIVAROXABAN 15 MG TAB PO SCH (21:00)
[2020-11-09] MEDS: SODIUM CHLORIDE 0.9% 1,000 ML IV SCH ×3 (00:46→13:46)
[2020-11-09] MEDS: MELATONIN 5 MG TABLET PO PRN (01:03)
[2020-11-09] MEDS: metroNIDAZOLE-NS PMX 500 MG in SALINE 1 100ML.BAG IVPB SCH ×2 (01:03→07:44)
[2020-11-09 04:21] VITALS: TEMP 98.5
[2020-11-09 07:12] VITALS: BP 178/78; PULSE 63; RESP 18
[2020-11-09] MEDS: LOSARTAN 50 MG TAB PO SCH (07:45)
[2020-11-09] MEDS: amLODIPine 5 MG TAB PO SCH (07:45)
[2020-11-09] MEDS: ASPIRIN 81 MG PO SCH (07:45)
[2020-11-09 08:16] LABS: African American GFR (CKD) 71 (>60 ml/min/1.73 sqM); Anion Gap 6 mmol/L; Blood Urea Nitrogen 13 mg/dL (9-20); Calcium 8.1 mg/dL (8.4-10.2); Carbon Dioxide 19 mmol/L (22-30); Chloride 113 mmol/L (98-107); Glucose 80 mg/dL (74-99); Non-African American GFR(CKD) 61 (>60 ml/min/1.73 sqM); Potassium 3.5 mmol/L (3.5-5.1); Sodium 138 mmol/L (137-145)
--- NOTE | 2020-11-09 15:11 | P.PN ---
Subjective Progress Note Date: 11/09/20 CHIEF COMPLAINT: Diverticular abscess HISTORY OF PRESENT ILLNESS: Surgical service is following in regards to patient's peridiverticular abscess. Patient evaluated by IR for possible CT- guided drainage of abscess. Procedure was aborted. Patient's abscess has shown decrease in size from 5 cm to 4 cm. Also patient was having elevated blood pressure at the time and abscess with close proximity to the bowel wall procedure was aborted by IR service. He remains on antibiotics. He denies any abdominal pain. Denies any nausea or vomiting. He has having loose bowel movements. Infectious diseases arranging midline and outpatient IV antibiotics. Afebrile. WBC 7.23 hemoglobin 9.2 platelets 190 PHYSICAL EXAM: VITAL SIGNS: Reviewed. GENERAL: Well-developed in no acute distress. HEENT: No sclera icterus. Extraocular movements grossly intact. Moist buccal mucosa. Head is atraumatic, normocephalic. ABDOMEN: Soft. Nondistended. Nontender. NEUROLOGIC: Alert and oriented. Cranial nerves II through XII grossly intact. ASSESSMENT: 1. Peridiverticular abscess improving with antibiotics PLAN: -Patient can be discharged surgical standpoint. Patient will require colonoscopy outpatient after he completes his antibiotic treatment. -No surgical intervention planned -Continue antibiotics per ID service -Continue supportive care Physician Advisory Intern note has been reviewed by physician. Signing provider agrees with the documented findings, assessment, and plan of care. Objective - Vital Signs Vital signs: Vital Signs Temp 98.5 F 11/09/20 07:11 Pulse 63 11/09/20 07:11 Resp 18 11/09/20 07:11 BP 178/78 11/09/20 07:11 Pulse Ox 96 11/09/20 07:11 Intake & Output 11/08/20 11/09/20 11/09/20 18:59 06:59 18:59 Intake Total 150 Balance 150 Intake: IV 50 cefTRIAXone 2 gm In 50 Sodium Chloride 0.9% 50 ml @ 100 mls/hr IVPB Q24HR [facility] Rx#:[id number] Intake, IV Titration 100 Amount metroNIDAZOLE-NS PMX 500 100 mg In Saline 1 100ml.bag @ 100 mls/hr IVPB Q8HR [facility]INDER Rx#:[id number] Other: Voiding Method Toilet Toilet Urinal Urinal # Voids 3 - Labs CBC & Chem 7: 11/08/20 06:38 11/09/20 06:14 Labs: Abnormal Lab Results - Last 24 Hours (Table) 11/09/20 Range/Units 06:14 Chloride 113 H (98-107) mmol/L Carbon Dioxide 19 L (22-30) mmol/L Calcium 8.1 L (8.4-10.2) mg/dL Microbiology - Last 24 Hours (Table) 11/04/20 17:05 Blood Culture - Preliminary Blood No Growth after 96 hours 11/04/20 17:23 Blood Culture - Preliminary Blood No Growth after 96 hours
--- NOTE | 2020-11-09 16:17 | P.DS ---
Providers Date of admission: 11/04/20 17:22 Expected date of discharge: 11/09/20 Attending physician: Gloria Cummings Consults: 11/05/20 10:35 Consult Physician Routine Consulting Provider: René Garcia Consult Reason/Comments: positive blood cultures Do you want consulting provider notified?: Yes 11/06/20 12:05 Consult Physician Routine Consulting Provider: Rodney Manuel Consult Reason/Comments: abdominal abscess Do you want consulting provider notified?: Yes Primary care physician: Chuck Cosby Hospital Course: Final diagnosis Gram-negative bacteremia possible source could be peridiverticular abscess 6 cm sarah-diverticular abscess, with decrease in size shown on repeat CT Acute kidney injury secondary to above Mild hyponatremia Leukocytosis Mild protein calorie malnutrition Atrial fibrillation on anticoagulation Hyperlipidemia Hypertension Pacemaker in place Full code Discharge disposition Patient is being discharged in a stable condition with guarded prognosis to home. Patient will continue with home care in the outpatient setting. Patient will follow-up with Dr. Chuck garcia in the outpatient setting upon discharge. Patient is to continue with hemodialysis as scheduled. Total time taken is greater than 35 minutes. Hospital course Gram-negative bacteremia Mr. Gaitan is an 85-year-old male with a past medical history of atrial fibrillation, hypertension, hyperlipidemia, pacemaker in place called by the hospital and notified him to come back due to positive blood cultures. Patient was seen in the emergency department on 11/02/2020 for the chief complaints of dizziness and shaking when he was having lunch with family members. Patient was having subjective fevers but did not check his temperature. At the time of admission his temperature was 102.7, he was given IV fluids after which she felt better. Blood cultures were obtained and he was discharged home. Eventually the blood cultures drawn from 11/02 were positive for gram-negative bacilli so he was called to come back. Patient has history of recurrent diverticulitis and was recently treated for a couple of months back. Patient is a poor historian and does not remember which antibiotics he was treated with. He complains of mild lower abdominal discomfort and constipation on and off that have been ongoing since then. In the ED, patient had his vitals checked showing temperature of 98.2, heart rate 80, respiratory rate 18, blood pressure 179/94, saturating at 97% on room air. On reviewing his labs white count of 13.2, hemoglobin 10.8, platelets 202. Sodium 135, rotation 3.7, chloride 105, bicarbonate 22, BUN 36, creatinine 1.30, albumin 3.4. Zambrano PCR negative. Patient had a CAT scan of the abdomen and pelvis showing complex 8 and fluid containing thick walled mass in the pelvis consistent with bradycardia diverticular chronic abscess. Lower abdominal aortic aneurysm. Patient received a dose of ceftriaxone and admitted for further management. 11/08/2020 Patient is seen and evaluated in follow-up and went with interventional radiology for possible guided abscess drainage although was told the abscess has decreased in size and will not be doing drainage. Patient was maintained on IV antibiotics in the form of Zosyn and infectious disease is following. IV antibiotics have recently been changed to ceftriaxone and Flagyl. Patient will likely need IV antibiotic therapy in the outpatient setting and will discuss with infectious disease along with case management about discharge planning needs. Patient to receive a midline today. Most recent repeated blood cultures remain negative thus far. Patient blood pressure is elevated today and will increase amlodipine dose and add hydralazine as needed as blood pressure systolic has been over 200. Blood count is 7.23 and hemoglobin is stable at 9.2, sodium is 140 with a potassium of 4.1 and creatinine is 1.1. 11/09/2020 Patient is seen in follow-up was seen by interventional radiology for possible drainage of the abscess although abscess had been shrinking in size and will continue with IV antibiotics. Most recent blood cultures remain negative. Patient received a midline and will continue with IV Rocephin along with oral Flagyl 500 mg 3 times daily. Prescription was sent to the pharmacy by infectious disease and notified patient that he is also to continue with oral antibiotics in the outpatient setting. Patient was seen and evaluated by surgery and recommending outpatient follow-up for colonoscopy after antibiotics are finished and abscess is resolved. Patient will be continuing with home care in the outpatient setting. Prescriptions also provided for repeat labs in a few days to monitor kidney functions along with electrolytes and CBC. Patient is requesting to go home today. Currently no reports of chest pain, shortness of breath, or palpitations. Patient is afebrile. No reports of nausea or vomiting and patient is tolerating diet. Patient will be discharged home today. On exam vital signs are stable. Cardio S1, S2 are muffled. Respiratory system shows diminished breath sounds at the bases with no wheezing or rhonchi noted. Abdomen is soft and obese, and nontender. Nervous system shows no focal deficits. Please refer to medication reconciliation sheet for a list of medications. Patient Condition at Discharge: Stable Plan - Discharge Summary Discharge Rx Participant: Yes New Discharge Prescriptions: New Acetaminophen Tab [Tylenol] 650 mg PO Q6HR PRN tab PRN Reason: Mild Pain Or Fever > 100.5 cefTRIAXone [Rocephin] 2,000 mg IVP Q24HR #14 ml amLODIPine [Norvasc] 5 mg PO BID 30 Days #60 tab metroNIDAZOLE [Flagyl] 500 mg PO TID #42 tab Continue Atorvastatin [Lipitor] 40 mg PO HS Rivaroxaban [Xarelto] 15 mg PO HS Aspirin EC [Ecotrin Low Dose] 81 mg PO DAILY Tamsulosin HCl [Flomax] 0.4 mg PO HS Losartan Potassium 100 mg PO DAILY Psyllium Husk 100% [Metamucil Packet] 6 gm PO DAILY PRN PRN Reason: Constipation Discontinued amLODIPine [Norvasc] 2.5 mg PO DAILY Chlorthalidone 25 mg PO DAILY Discharge Medication List Atorvastatin [Lipitor] 40 mg PO HS 10/11/20 [History] Losartan Potassium 100 mg PO DAILY 10/11/20 [History] Rivaroxaban [Xarelto] 15 mg PO HS 10/11/20 [History] Tamsulosin HCl [Flomax] 0.4 mg PO HS 10/11/20 [History] Aspirin EC [Ecotrin Low Dose] 81 mg PO DAILY 11/02/20 [History] Psyllium Husk 100% [Metamucil Packet] 6 gm PO DAILY PRN 11/02/20 [History] Acetaminophen Tab [Tylenol] 650 mg PO Q6HR PRN tab 11/09/20 [Rx] amLODIPine [Norvasc] 5 mg PO BID 30 Days #60 tab 11/09/20 [Rx] cefTRIAXone [Rocephin] 2,000 mg IVP Q24HR #14 ml 11/09/20 [Rx] metroNIDAZOLE [Flagyl] 500 mg PO TID #42 tab 11/09/20 [Rx] Follow up Appointment(s)/Referral(s): [facility], [NON-STAFF] - As Needed (Home care nurse will come to your home tomorrow morning. They will call with a time.) Chuck Cosby MD [Primary Care Provider] - 1-2 days (Office closed at time of discharge - please telephone office and make appointment) [facility], [REFERRING] - As Needed (IV antibiotics will be delivered to the home this evening.) Ambulatory/Diagnostic Orders: Complete Blood Count w/diff [LAB.AMB] Time Frame: 3 Days, Location: None Selected Patient Instructions/Handouts: Diverticulitis (DC), Diverticulitis Diet (DC), Bacteremia (DC), How to Care for Your Midline Catheter (DC) Activity/Diet/Wound Care/Special Instructions: Activity Limited until follow-up Follow-up with primary care provider upon discharge Continue with antibiotics per infectious disease Continue with home care Continue current diet Repeat labs in 2-3 days Discharge Disposition: HOME WITH HOME HEALTH SERVICES
== END 2020-11-09 14:13 | disposition home health service (06) | DRG 392 ==
LOC: EC 16:19 → 4SSUR 17:22
PROVIDERS: ADMIT Internal Medicine; ATTEND Internal Medicine
PROC: 05HC33Z Insertion of Infusion Device into Left Basilic Vein, Percutaneous Approach (ICD-10-PCS; principal; 2020-11-08 16:00)
DX: K57.20 Diverticulitis of large intestine with perforation and abscess without bleeding (principal); E44.1 Mild protein-calorie malnutrition; E87.1 Hypo-osmolality and hyponatremia; I48.19 Other persistent atrial fibrillation; N17.9 Acute kidney failure, unspecified; R78.81 Bacteremia; B96.89 Other specified bacterial agents as the cause of diseases classified elsewhere; Z68.23 Body mass index [BMI] 23.0-23.9, adult; E78.5 Hyperlipidemia, unspecified; G47.00 Insomnia, unspecified; I10 Essential (primary) hypertension; Z79.01 Long term (current) use of anticoagulants; I71.4 Abdominal aortic aneurysm, without rupture; K59.00 Constipation, unspecified; I25.10 Atherosclerotic heart disease of native coronary artery without angina pectoris; Z95.1 Presence of aortocoronary bypass graft; N40.0 Benign prostatic hyperplasia without lower urinary tract symptoms; Z53.9 Procedure and treatment not carried out, unspecified reason; Z79.82 Long term (current) use of aspirin; Z79.899 Other long term (current) drug therapy; Z86.79 Personal history of other diseases of the circulatory system; Z90.79 Acquired absence of other genital organ(s); Z95.0 Presence of cardiac pacemaker; Z96.611 Presence of right artificial shoulder joint; Z20.822 Contact with and (suspected) exposure to COVID-19
CPT/HCPCS: 36410; 36415; 74177; 76380; 76937; 80048; 80053; 84132; 85025; 85610; 87040; 87635; 99285

== ENCOUNTER → 2020-11-17 | Outpatient (CLI) | payer MEDICARE ==
--- NOTE | 2020-11-17 17:47 | CT ---
EXAMINATION TYPE: CT abdomen pelvis w con DATE OF EXAM: 11/17/2020 COMPARISON: 11/04/2020 HISTORY: Follow up for diverticulitis with abscess. CT DLP: 847.1 mGycm CONTRAST: CT scan of the abdomen and pelvis is performed with Oral Contrast and with IV Contrast, patient injec black with 80ml mL of Isovue 300. FINDINGS: LUNG BASES-: No visible nodule. No infiltrate. LIVER/GB: Small noncalcified gallstones identified. No space occupying hepatic lesion. Biliary mario alberto e is of normal caliber. PANCREAS: No inflammation. No distinct mass. SPLEEN: No splenic enlargement. No lesion seen. ADRENALS: No nodule. No thickening. No distinct renal mass. Renal cortical cysts redemonstrated. KIDNEYS/BLADDER: No hydronephrosis. No nephrolithiasis. Urinary bladder grossly unremarkable. BOWEL: Normal appendix. There is persistent abscess noted adjacent to the sigmoid colon stent into th e dome of the urinary bladder with current measurements of approximately 4.0 x 3.7 x 5.2 cm versus 5. 3 x 4.4 x 5.0 cm. No new abscesses seen. No evidence for air within the bladder. Remaining gastrointe stinal tract is unremarkable. GENITAL ORGANS: No gross abnormality. LYMPH NODES: No greater than 1cm abdominal or pelvic lymph nodes are appreciated. AORTA: Aortic stent graft is in place. OSSEOUS STRUCTURES: No significant abnormality is seen. OTHER: No significant additional abnormality is seen. IMPRESSION: 1. Diverticular abscess persists although slightly smaller in size.
== END | disposition home or self-care (01) ==
LOC: RADCTMAIN 15:23
PROVIDERS: ATTEND Internal Medicine Infectious Disease
DX: K57.20 Diverticulitis of large intestine with perforation and abscess without bleeding (principal)
CPT/HCPCS: 74177; Q9967

== ENCOUNTER → 2020-12-09 | Outpatient (CLI) | payer MEDICARE ==
--- NOTE | 2020-12-09 13:44 | CT ---
EXAMINATION TYPE: CT abdomen pelvis w con DATE OF EXAM: 12/09/2020 COMPARISON: 11/17/2020 INDICATION: Diverticulitis of large intestine with perforation and abscess without bleeding. DLP: 754.1 mGycm, Automated exposure control for dose reduction was used. CONTRAST: 100 mL of Isovue M300. Study performed with Oral Contrast TECHNIQUE: Axial images were obtained from above the diaphragm to the pubic rami in the axial plane a t 5 mm thick sections. Reconstructed images are reviewed on the computer in the coronal plane. FINDINGS: Limited CT sections are obtained the lung bases. The lung bases are clear. CT ABDOMEN: Liver: Normal Spleen: Normal Pancreas: Normal Adrenal glands: The adrenal glands are normal. Gallbladder: Small gallstones are likely present. Kidneys: No masses are evident. No hydronephrosis is present. There is a 2.8 cm cyst measuring 9 Ho unsfield units of the superior pole left kidney. There is a posterior lateral upper pole cyst measuri ng 3.9 cm 6 Hounsfield units on the right kidney. Delayed images were obtained through the kidneys, which remain unremarkable. Aorta: Aortic stent is evident with extension into the common iliac vessels bilaterally Inferior vena cava: Normal. CT PELVIS: Diverticuli are seen in the sigmoid colon. There is an air collection with fluid and air-fluid level anterior to the sigmoid colon superior to the urinary bladder measuring 3.8 x 2.4 cm. Small abscess l ikely present. This is smaller than the comparison of 5.2 cm. No free air is identified. There are lo ops of bowel which are incompletely distended or lack oral contrast limiting their evaluation. Appendix: Normal as visualized. Urinary bladder: Normal. Genitourinary structures: Uterus is unremarkable. Adnexal regions are clear. Osseous structures: No suspicious lytic or sclerotic lesions. IMPRESSIONS: 1. Improving sigmoid colon abscess which is diminished in size.
== END | disposition home or self-care (01) ==
LOC: RADCTMAIN 11:35
PROVIDERS: ATTEND Internal Medicine Infectious Disease
DX: K57.20 Diverticulitis of large intestine with perforation and abscess without bleeding (principal)
CPT/HCPCS: 82565; 84520; 74177; 36415; Q9967 ×2

== ENCOUNTER → 2021-01-02 | Outpatient (CLI) | payer MEDICARE ==
--- NOTE | 2021-01-02 11:46 | CT ---
EXAMINATION TYPE: CT abdomen pelvis w con DATE OF EXAM: 01/02/2021 COMPARISON: 12/09/2020 HISTORY: 85-year-old male K5 7.20, diverticulitis of large intestine with perforation TECHNIQUE: Contiguous axial scanning of the abdomen and pelvis following administration of 100 ml Iso srinivasa 300 IV contrast. Delayed images through the kidneys and coronal/sagittal reconstructions perform ed. CT DLP: 771.8 mGycm Automated exposure control for dose reduction was used. FINDINGS: Median sternotomy wires. Heart borderline enlarged. Right ventricular pacer lead. Scattered interstit ial thickening in the lower lungs, unchanged, suggesting underlying interstitial fibrosis. Small fat- containing Bochdalek hernia on the right. Abdominal aortobiiliac endovascular stent graft. [place] sac measures up to 5.8 cm, unchanged. No focal liver lesion or biliary ductal dilatation. Portal venous system is patent. Gallbladder, adrenal glands, spleen with hilar splenule, and pancreas within normal limits. Bilateral renal cortical cysts measuring up to 3.6 cm redemonstrated. The right kidney is slightly at rophic compared to the left. No dilated small bowel, free fluid, or free air. Normal appendix. No mesenteric or retroperitoneal ly mphadenopathy. Left-sided colonic diverticulosis. Oral contrast progressed to the splenic flexure of the colon. Mode rate stool burden. Sigmoid diverticulosis. Pericolonic abscess projecting inferiorly from the mid sigmoid colon currently measures 4.4 x 3.1 cm versus 3.8 x 2.4 cm, previously. Internal mottled debris and air is present. Surrounding inflammatory fat stranding has shown some improvement. It continues to prominently abuts and indents the fundus o f the bladder which is also mildly thickened. Prostate gland is enlarged at 5.3 cm wide. No abnormal air within the lumen of the bladder. No abnorm al fluid collection otherwise seen in the pelvis. No pelvic lymphadenopathy. Partially visualized right scrotal hydrocele. Bones: Stable sclerotic focus left ischial tuberosity, probable bone island. Mild degenerative change of both hips. Moderate to advanced degenerative disc disease mid to lower lumbar spine. Trace grade 1 retrolisthesis L2-L3 and L3-L4. IMPRESSION: 1. A 4.3 X 3 X 1 CM ABSCESS ALONG THE INFERIOR ASPECT OF THE MID SIGMOID COLON. WHILE THIS IS SLIGHTL Y LARGER COMPARED TO 3.8 x 2.4 cm, previously, the surrounding fat stranding and inflammation continu es to improve. 2. The abscess continues to prominently abut and indent the fundus of the bladder which also shows co ntiguous inflammatory thickening.
== END | disposition home or self-care (01) ==
LOC: RADCTMAIN 08:21
PROVIDERS: ATTEND Internal Medicine Infectious Disease
DX: K63.0 Abscess of intestine (principal)
CPT/HCPCS: 82565; 84520; 74177; 36415; Q9967